=== PATIENT | female | born 1970 | race Caucasian/White ===

== ENCOUNTER 2016-08-28 02:57 | Emergency (ER) | payer OTHER ==
[~2016-08-28] VITALS: Ht 157.5 cm; Wt 80.0 kg
[~2016-08-28 02:57] MED LIST: ACETAMINOPHEN500 MG PO; ACID CONTROL75 MG PO; ALAVERT10 MG PO; ALBUTEROL SULF8.5 GM IH; ALBUTEROL0.63 MG/3 IH; ALLERGY EYE DRO10 ML BOTH EYES; AMBIEN5 MG PO; AMITRIPTYLINE H25 MG PO; AMOXICILLIN500 MG PO; AUGMENTIN875 MG PO; AXERT12.5 MG PO; AZITHROMYCIN500 M1 PO; Ambien PO; BENADRYL25 MG PO; BENTYL10 MG PO; BUSPIRONE HCL15 MG PO; BUTALB-APAP-CA1 EACH PO; CARAFATE1 GM PO; CEFDINIR300 MG PO; CEFUROXIME500 MG PO; CELEXA10 M1 PO; CLARITIN,ALAVAR10 MG PO; CLARITIN10 M3 PO; CLARITIN10 MG PO; CLONAZEPAM0.5 MG PO; CLONAZEPAM1 MG PO; CLONAZEPAM2 MG PO; COGENTIN0.5 MG PO; COMBIVENT; COMBIVENT RESPIM4 GM IH; COMBIVENT200 INHALA; COMBIVENT200 INHALA IH; CYCLOBENZAPRINE10 MG PO; CYMBALTA30 MG PO; CYMBALTA60 MG PO; Combivent IH; DAILY VALUE1 EACH PO; DESYREL 150 MG150 MG PO; DIAZEPAM2 MG PO; DICLOFENAC SODI75 MG PO; DICYCLOMINE HCL10 MG PO; DIFLUCAN150 MG PO; DILAUDID4 MG PO; DONNATAL1 ML PO; DOXYCYCLINE HY100 MG PO; DULCOLAX10 MG PR; DUONEB 2.5-0.5 M3 ML AEROSOL; DUONEB 2.5-0.5 M3 ML IH; FAMOTIDINE20 MG PO; FELODIPINE ER2.5 MG PO; FENTANYL; FENTANYL1 EAC5 TD; FIORICET 50-301 EACH PO; FIORICET WI1 CAPSULE PO; FLECTOR 1.3%1 PATC1 TD; FLEXERIL10 MG PO; FLONASE16 G1 BOTH NARES; FLOVENT 11120 INHALA IH; FLOVENT DISKUS1 DIS1 IH; FLOVENT DISKUS1 DIS2 IH; FLOVENT DISKUS1 DISK IH; FLUTICASONE PRO16 GM; FLUTICASONE PRO16 GM BOTH NARES; GABAPENTIN100 MG PO; GABAPENTIN300 MG PO; GEODON20 MG PO; GINSENG100 M2 PO; GUAIFENESIN400 MG PO; HYCODAN SYRUP480 ML PO; HYDROCORTISON28.4 GM TP; INDERAL40 MG PO; INHALER; KADIAN10 MG PO; KEFLEX500 MG PO; KLONOPIN0.25 MG PO; KLONOPIN0.5 M1 PO; KLONOPIN1 MG PO; KLONOPIN2 MG PO; KLOR-CON 1010 ME1 PO; LEVAQUIN 7750 MG/150 IV; LEVAQUIN750 MG PO; LEXAPRO20 MG PO; LIDOCAINE HCL35 GM TP; LIDODERM 5% P1 PATCH TD; LORATADINE 10 MG TAB; LORATADINE10 M2 PO; LORAZEPAM1 MG PO; LORAZEPAM2 MG PO; MARTEN-TAB 3251 EACH PO; METRONIDAZOLE500 MG PO; MICRO-K8 ME1 PO; MIRALAX17 GM PO; MIRTAZAPINE30 MG PO; MONTELUKAST SOD10 MG PO; MS CONTIN,ORAMO15 M1 PO; NASAL SPRAY30 M4 BOTH NARES; NEURONTIN300 MG PO; NICOTINE PATCH1 EAC2 TD; NOHOMEMEDS; NYSTATIN100000 UN1 PO; OMEPRAZOLE DR 20 MG; OMEPRAZOLE10 MG PO; OMEPRAZOLE20 MG PO; OMEPRAZOLE40 M1 PO; OXCARBAZEPINE300 MG PO; PANTOPRAZOLE SO40 MG PO; PAXIL40 MG PO; PEN-VEE K,VEET500 MG PO; PERCOCET 10/1 TABLET PO; PERCOCET 5/31 TABLET PO; PERCOCET 7.51 TABLET PO; PLAVIX75 MG PO; POTASSIUM CHLOR8 ME2 PO; PREDNISONE10 M1 PO; PREDNISONE10 MG PO; PREDNISONE20 MG PO; PREDNISONE50 MG PO; PRILOSEC PO; PRILOSEC20 MG PO; PRILOSEC40 MG PO; PROAIR HFA8.5 GM IH; PROMETHAZINE12.5 M1 PO; PROTONIX40 MG PO; PROVENTIL,2.5 MG/0.5 IH; PROVENTIL,2.5 MG/3 M IH; PROZAC20 MG PO; RANITIDINE HCL300 MG PO; RANITIDINE HCL75 MG PO; RELAFEN750 MG PO; REMERON15 M2 PO; REMERON30 M2 PO; RESTORIL15 MG PO; RESTORIL30 MG PO; RISPERDAL0.5 MG PO; ROBITUSSIN AC,T10 ML PO; ROXICODONE5 MG PO; SENNA8.6 M1 PO; SEROQUEL12.5 MG PO; SINGULAIR10 MG; SINGULAIR10 MG PO; SUCRALFATE1 GM PO; TEMAZEPAM30 MG PO; TOPAMAX100 MG PO; TOPAMAX200 MG PO; TOPAMAX25 MG PO; TOPIRAMATE100 MG PO; TOPIRAMATE200 MG PO; TOPIRAMATE25 MG PO; TORADOL10 MG PO; TRAMADOL HCL50 MG PO; TRAZODONE HCL150 MG PO; TRILIPIX135 MG PO; ULTRACET1 TABLET; ULTRACET1 TABLET PO; ULTRAM50 MG PO; VALIUM5 MG PO; VENTOLIN HFA18 GM IH; VENTOLIN17 GM IH; VERAPAMIL HCL120 M1 PO; VERAPAMIL HCL120 M2 PO; VERAPAMIL HCL120 MG PO; VERAPAMIL HCL240 MG PO; VICODIN HP 10-1 EACH PO; VOLTAREN 1% GE100 GM TP; ZIPRASIDONE HCL20 MG PO; ZIPRASIDONE HCL60 MG PO; ZITHROMAX Z-PA250 MG PO; ZITHROMAX250 MG PO; ZOFRAN ODT4 MG PO; ZOLOFT25 MG PO; ZOLPIDEM TARTRA10 MG PO; ZOLPIDEM TARTRAT5 MG PO; [UNRECOGNIZED DRUG - OTHER]; [UNRECOGNIZED DRUG - REMARK]; [UNRECOGNIZED DRUG - REMARK]; [UNRECOGNIZED DRUG - REMARK] PO; blood pressure med; carafate; clonazepam; cymbalta; duoneb; flovent; loratadine; metoprolol; singulair; topamax
[2016-08-28] MEDS ORDERED: PREDNISONE20 MG PO (03:50)
[2016-08-28] MEDS ORDERED: DOXYCYCLINE HY100 M3 PO (03:50)
[2016-08-28] MEDS ORDERED: VENTOLIN HFA18 GM IH (03:50)
[2016-08-28 05:30] VITALS: BP 118/74
== END 2016-08-28 05:33 | disposition home or self-care (01) ==
LOC: EME 02:57
DX: J44.0 Chronic obstructive pulmonary disease with (acute) lower respiratory infection (principal); J44.1 Chronic obstructive pulmonary disease with (acute) exacerbation; J20.9 Acute bronchitis, unspecified; F17.200 Nicotine dependence, unspecified, uncomplicated; I10 Essential (primary) hypertension; Z85.41 Personal history of malignant neoplasm of cervix uteri; Z95.5 Presence of coronary angioplasty implant and graft; Z88.6 Allergy status to analgesic agent; Z88.1 Allergy status to other antibiotic agents
CPT/HCPCS: 71010; 94640; 99281; 99285; J7512

== ENCOUNTER 2016-09-06 17:35 | Observation (INO) | payer OTHER ==
[~2016-09-06] VITALS: Ht 157.5 cm; Wt 79.5 kg
[~2016-09-06 17:35] MED LIST changes: +DOXYCYCLINE HY100 M3 PO
[2016-09-06 18:07] LABS: HEMATOCRIT 36.8 % (36.0-46.0); MCH 32.1 PG (29.0-34.0); MCHC 32.6 G/DL (30.0-36.0); MCV 98.4 FL (83-99); MEAN PLAT.VOLUME 8.7 uM^3 (9.5-12.4); PLATELET COUNT 191 K/uL (156-360); RBC DIS.WIDTH-CV 13.3 % (11.8-14.6); RBC DIS.WIDTH-SD 46.6 % (39-53); RED BLOOD COUNT 3.74 M/uL (3.80-5.20); WHITE BLOOD COUNT 6.4 K/uL (4.1-10.2)
[2016-09-06 18:16] LABS: CHLORIDE 112 mEq/L (99-109); POTASSIUM 3.6 mEq/L (3.7-5.4); SODIUM 142 mEq/L (136-147)
[2016-09-06 18:17] LABS: GLUCOSE 89 mg/dL (70-99)
[2016-09-06 18:19] LABS: ANION GAP 11 MEQ/L (2-14); D-DIMER ELISA 0.38 mg/L FEU (< 0.57)
[2016-09-06 18:21] LABS: GFR ESTIMATE (CALCULATED) > 59 mL/min/
[2016-09-06 18:22] LABS: UREA NITROGEN (BUN) 15 mg/dL (9-23)
[2016-09-06 18:27] LABS: TROP-I INTERPRETATION NEGATIVE; TROPONIN-I < 0.01 ng/mL (0.0-0.30)
[2016-09-06] MEDS ORDERED: CARAFATE1 GM PO (19:03)
[2016-09-06] MEDS ORDERED: NEXIUM40 MG PO (19:04)
[2016-09-06] MEDS ORDERED: FOLIC ACID1 MG PO (19:04)
[2016-09-06] MEDS ORDERED: ABILIFY10 MG PO (19:04)
[2016-09-06] MEDS ORDERED: LYRICA50 MG PO (19:04)
[2016-09-06] MEDS ORDERED: BUSPAR7.5 MG PO (19:04)
[2016-09-06] MEDS ORDERED: ELAVIL25 MG PO (19:05)
[2016-09-06 20:20] VITALS: BP 140/97
[2016-09-07 00:43] VITALS: BP 131/88
[2016-09-07 04:30] VITALS: BP 124/76
[2016-09-07 06:45] LABS: HDL CHOLESTEROL 29 MG/DL (Desirable>=50); LDL CHOLESTEROL 130 mg/dL (Desirable<100); NON-HDL CHOLESTEROL 188 mg/dL (Desirable<160); TOTAL CHOLESTEROL 217 mg/dL (Desirable<200); TRIGLYCERIDES 288 MG/DL (Normal: <150)
[2016-09-07 06:55] LABS: TROP-I INTERPRETATION NEGATIVE; TROPONIN-I 0.01 ng/mL (0.0-0.30)
[2016-09-07 07:34] VITALS: BP 126/81
[2016-09-07] MEDS ORDERED: PRAVASTATIN SOD40 MG PO (10:43)
== END 2016-09-07 12:15 | disposition home or self-care (01) ==
LOC: EME 17:35 → EDOF 19:06 → 5WEST 19:06
PROVIDERS: Emergency Medicine; Physician Assistant Medical
DX: R07.9 Chest pain, unspecified (principal); R94.31 Abnormal electrocardiogram [ECG] [EKG]; I10 Essential (primary) hypertension; I70.0 Atherosclerosis of aorta; Z82.49 Family history of ischemic heart disease and other diseases of the circulatory system; G89.4 Chronic pain syndrome; F17.200 Nicotine dependence, unspecified, uncomplicated; Z91.128 Patient's intentional underdosing of medication regimen for other reason; T45.8X6A Underdosing of other primarily systemic and hematological agents, initial encounter; Z79.891 Long term (current) use of opiate analgesic; R13.10 Dysphagia, unspecified; R06.02 Shortness of breath; J44.9 Chronic obstructive pulmonary disease, unspecified; M19.90 Unspecified osteoarthritis, unspecified site; E66.9 Obesity, unspecified; Z68.32 Body mass index [BMI] 32.0-32.9, adult; Z87.898 Personal history of other specified conditions; Z87.19 Personal history of other diseases of the digestive system; Z85.41 Personal history of malignant neoplasm of cervix uteri; Z88.8 Allergy status to other drugs, medicaments and biological substances; Z91.09 Other allergy status, other than to drugs and biological substances; Z80.1 Family history of malignant neoplasm of trachea, bronchus and lung
CPT/HCPCS: 71010; 80048; 80061; 84484; 85027; 85379; 93005; 94640; 99202; 99281; 99285; G0378; J1650

== ENCOUNTER 2016-09-10 20:37 | Emergency (ER) | payer OTHER ==
[~2016-09-10] VITALS: Ht 157.5 cm; Wt 74.2 kg
[~2016-09-10 20:37] MED LIST changes: +ABILIFY10 MG PO; +BUSPAR7.5 MG PO; +ELAVIL25 MG PO; +FOLIC ACID1 MG PO; +LYRICA50 MG PO; +NEXIUM40 MG PO; +PRAVASTATIN SOD40 MG PO
[2016-09-10 20:48] LABS: HEMATOCRIT 38.1 % (36.0-46.0); MCH 32.7 PG (29.0-34.0); MCHC 33.6 G/DL (30.0-36.0); MCV 97.2 FL (83-99); MEAN PLAT.VOLUME 8.8 uM^3 (9.5-12.4); PLATELET COUNT 174 K/uL (156-360); RBC DIS.WIDTH-CV 13.1 % (11.8-14.6); RBC DIS.WIDTH-SD 45.3 % (39-53); RED BLOOD COUNT 3.92 M/uL (3.80-5.20); WHITE BLOOD COUNT 6.2 K/uL (4.1-10.2)
[2016-09-10 20:58] LABS: CHLORIDE 115 mEq/L (99-109); POTASSIUM 3.1 mEq/L (3.7-5.4); SODIUM 144 mEq/L (136-147)
[2016-09-10 21:00] LABS: GLUCOSE 101 mg/dL (70-99)
[2016-09-10 21:01] LABS: ANION GAP 11 MEQ/L (2-14)
[2016-09-10 21:02] LABS: TOTAL BILIRUBIN 0.2 mg/dL (0.0-1.0)
[2016-09-10 21:03] LABS: ALKALINE PHOSPHATASE 65 IU/L (3-129)
[2016-09-10 21:04] LABS: GFR ESTIMATE (CALCULATED) > 59 mL/min/
[2016-09-10 21:05] LABS: UREA NITROGEN (BUN) 11 mg/dL (9-23)
[2016-09-10 21:07] LABS: LIPASE 25 U/L (1.0-51.0)
[2016-09-10 21:09] LABS: TROP-I INTERPRETATION NEGATIVE; TROPONIN-I < 0.01 ng/mL (0.0-0.30)
[2016-09-11] MEDS ORDERED: NORCO 5/3251 TABLET PO (00:52)
[2016-09-11 01:25] VITALS: BP 155/90
== END 2016-09-11 01:26 | disposition home or self-care (01) ==
LOC: EME 20:37
DX: R11.2 Nausea with vomiting, unspecified (principal); R10.84 Generalized abdominal pain; M25.512 Pain in left shoulder; M62.838 Other muscle spasm; I10 Essential (primary) hypertension; R42 Dizziness and giddiness; R05 Cough; E87.6 Hypokalemia; G89.29 Other chronic pain; Z79.891 Long term (current) use of opiate analgesic; J44.9 Chronic obstructive pulmonary disease, unspecified; J45.909 Unspecified asthma, uncomplicated; F17.200 Nicotine dependence, unspecified, uncomplicated
CPT/HCPCS: 71020; 80053; 81003; 83690; 84484; 85027; 93005; 99281; 99285; J0780; J1200; J2405; J7030

== ENCOUNTER 2016-09-20 09:37 | Emergency (ER) | payer OTHER ==
[~2016-09-20] VITALS: Ht 157.5 cm; Wt 80.0 kg
[~2016-09-20 09:37] MED LIST changes: +NORCO 5/3251 TABLET PO
[2016-09-20 10:00] VITALS: BP 126/101
[2016-09-20 10:16] LABS: EOSINOPHIL (%) 0.9 % (0-5); EOSINOPHIL COUNT 0.1 K/uL (0-0.3); HEMATOCRIT 38.6 % (36.0-46.0); IMMATURE GRANULOCYTE (%) 0.3 % (0.0-0.7); IMMATURE GRANULOCYTE COUNT 0.2 K/uL; MCH 33.2 PG (29.0-34.0); MCHC 33.9 G/DL (30.0-36.0); MEAN PLAT.VOLUME 9.6 uM^3 (9.5-12.4); MONOCYTE (%) 5.9 % (3-12); MONOCYTE COUNT 0.5 K/uL (0-0.8); NEUTROPHIL (%) 67.2 % (45-76); NEUTROPHIL COUNT 5.4 K/uL (1.8-6.4); PLATELET COUNT 162 K/uL (156-360); RBC DIS.WIDTH-SD 45.5 % (39-53); RED BLOOD COUNT 3.94 M/uL (3.80-5.20)
[2016-09-20 10:32] LABS: CHLORIDE 113 mEq/L (99-109); POTASSIUM 4.1 mEq/L (3.7-5.4); SODIUM 140 mEq/L (136-147)
[2016-09-20 10:34] LABS: GLUCOSE 95 mg/dL (70-99)
[2016-09-20 10:35] LABS: ANION GAP 10 MEQ/L (2-14)
[2016-09-20 10:37] LABS: GFR ESTIMATE (CALCULATED) > 59 mL/min/
[2016-09-20 10:41] LABS: TROP-I INTERPRETATION NEGATIVE; TROPONIN-I < 0.01 ng/mL (0.0-0.30); UREA NITROGEN (BUN) 16 mg/dL (9-23)
== END 2016-09-20 11:45 | disposition left against medical advice (07) ==
LOC: EME 09:37
PROVIDERS: Emergency Medicine
DX: R07.9 Chest pain, unspecified (principal); M54.9 Dorsalgia, unspecified; M79.602 Pain in left arm; G89.29 Other chronic pain; Z79.891 Long term (current) use of opiate analgesic; J44.9 Chronic obstructive pulmonary disease, unspecified; I10 Essential (primary) hypertension; F17.200 Nicotine dependence, unspecified, uncomplicated
CPT/HCPCS: 71010; 80048; 84484; 85025; 93005; 99281; 99284

== ENCOUNTER 2016-09-20 19:33 | Emergency (ER) | payer OTHER ==
[~2016-09-20] VITALS: Ht 157.5 cm; Wt 83.1 kg
[2016-09-20 19:49] LABS: HEMATOCRIT 35.5 % (36.0-46.0); MCHC 33.5 G/DL (30.0-36.0); MCV 98.3 FL (83-99); MEAN PLAT.VOLUME 8.9 uM^3 (9.5-12.4); PLATELET COUNT 156 K/uL (156-360); RBC DIS.WIDTH-SD 44.9 % (39-53); RED BLOOD COUNT 3.61 M/uL (3.80-5.20)
[2016-09-20 19:58] LABS: CHLORIDE 114 mEq/L (99-109); POTASSIUM 3.2 mEq/L (3.7-5.4); SODIUM 142 mEq/L (136-147)
[2016-09-20 19:59] LABS: GLUCOSE 95 mg/dL (70-99)
[2016-09-20 20:01] LABS: ANION GAP 7 MEQ/L (2-14)
[2016-09-20 20:03] LABS: GFR ESTIMATE (CALCULATED) > 59 mL/min/
[2016-09-20 20:04] LABS: UREA NITROGEN (BUN) 18 mg/dL (9-23)
[2016-09-20 20:15] LABS: TROP-I INTERPRETATION NEGATIVE; TROPONIN-I < 0.01 ng/mL (0.0-0.30)
[2016-09-20 20:52] LABS: D-DIMER ELISA 0.32 mg/L FEU (< 0.57)
[2016-09-20 21:28] VITALS: BP 158/104
== END 2016-09-20 21:35 | disposition home or self-care (01) ==
LOC: EME → EDBD 19:33 → EME 19:33
DX: R07.2 Precordial pain (principal); F17.200 Nicotine dependence, unspecified, uncomplicated; G89.29 Other chronic pain; J44.9 Chronic obstructive pulmonary disease, unspecified; I10 Essential (primary) hypertension; K21.9 Gastro-esophageal reflux disease without esophagitis; F32.9 Major depressive disorder, single episode, unspecified
CPT/HCPCS: 71020; 80048 91; 84484; 85027; 85379; 93005; 99281; 99284; J1885; J7050

== ENCOUNTER 2016-10-05 22:46 | Inpatient (IN) | payer OTHER ==
[~2016-10-05] VITALS: Ht 157.5 cm; Wt 82.1 kg
[2016-10-05 23:31] LABS: HEMATOCRIT 37.2 % (36.0-46.0); MCH 32.3 PG (29.0-34.0); MCHC 32.3 G/DL (30.0-36.0); MEAN PLAT.VOLUME 8.8 uM^3 (9.5-12.4); PLATELET COUNT 193 K/uL (156-360); RBC DIS.WIDTH-CV 12.2 % (11.8-14.6); RBC DIS.WIDTH-SD 45.4 % (39-53); RED BLOOD COUNT 3.72 M/uL (3.80-5.20); WHITE BLOOD COUNT 6.1 K/uL (4.1-10.2)
[2016-10-05 23:41] LABS: CHLORIDE 110 mEq/L (99-109); SODIUM 141 mEq/L (136-147)
[2016-10-05 23:43] LABS: GLUCOSE 106 mg/dL (70-99)
[2016-10-05 23:44] LABS: ANION GAP 11 MEQ/L (2-14)
[2016-10-05 23:45] LABS: TOTAL BILIRUBIN 0.2 mg/dL (0.0-1.0)
[2016-10-05 23:47] LABS: ALKALINE PHOSPHATASE 63 IU/L (3-129); GFR ESTIMATE (CALCULATED) > 59 mL/min/
[2016-10-05 23:48] LABS: UREA NITROGEN (BUN) 13 mg/dL (9-23)
[2016-10-05 23:52] LABS: TROP-I INTERPRETATION NEGATIVE; TROPONIN-I < 0.01 ng/mL (0.0-0.30)
[2016-10-05 23:56] LABS: QUANTITATIVE HCG 7.3 MIU/ML
[2016-10-06 00:48] LABS: D-DIMER ELISA 0.46 mg/L FEU (< 0.57)
[2016-10-06 00:57] LABS: INFLUENZA A VIRAL ANTIGEN NEGATIVE; INFLUENZA B VIRAL ANTIGEN NEGATIVE
[2016-10-06 01:10] LABS: ADD MIUA? NO; BILIRUBIN NEGATIVE; BLOOD NEGATIVE; COLOR YELLOW ((YELLOW)); GLUCOSE (STRIP) NEGATIVE; KETONES NEGATIVE; LEUKOCYTES NEGATIVE; NITRITE NEGATIVE; PROTEIN (STRIP) NEGATIVE; SPECIFIC GRAVITY 1.014 (1.000-1.030); UCUL ADDED? NO; UROBILINOGEN 0.2 MG/DL (0.2-1.0)
[2016-10-06] MEDS ORDERED: LISINOPRIL40 MG PO (09:06)
[2016-10-06] MEDS ORDERED: LORAZEPAM1 MG PO (09:06)
[2016-10-06] MEDS ORDERED: LAMICTAL100 MG PO (09:06)
[2016-10-06 18:35] VITALS: BP 156/101
[2016-10-06 22:48] VITALS: BP 152/85
[2016-10-07 03:07] VITALS: BP 163/83
[2016-10-07 07:02] LABS: EOSINOPHIL (%) 0 % (0-5); HEMATOCRIT 35.4 % (36.0-46.0); IMMATURE GRANULOCYTE (%) 1.3 % (0.0-0.7); IMMATURE GRANULOCYTE COUNT 0.2 K/uL; INSTRUMENT ABS NEUTROPHIL CT 10.9 K/uL; LYMPHOCYTE COUNT 1.3 K/uL (1.0-2.8); MCH 32.6 PG (29.0-34.0); MCHC 32.2 G/DL (30.0-36.0); MCV 101.1 FL (83-99); MEAN PLAT.VOLUME 9.3 uM^3 (9.5-12.4); MONOCYTE (%) 3.1 % (3-12); MONOCYTE COUNT 0.4 K/uL (0-0.8); NEUTROPHIL (%) 85.1 % (45-76); NEUTROPHIL COUNT 10.9 K/uL (1.8-6.4); PLATELET COUNT 188 K/uL (156-360); RBC DIS.WIDTH-CV 12.5 % (11.8-14.6); RBC DIS.WIDTH-SD 46.4 % (39-53)
[2016-10-07 07:04] VITALS: BP 138/85
[2016-10-07 07:13] LABS: WHITE BLOOD COUNT 12.8 K/uL (4.1-10.2)
[2016-10-07 07:25] LABS: ANION GAP 9 MEQ/L (2-14); CHLORIDE 111 MEQ/L (99-109); GFR ESTIMATE (CALCULATED) > 59 mL/min/; GLUCOSE 114 mg/dL (70-99); SAMPLE HEMOLYSIS CHECK 0; SAMPLE ICTERIC CHECK 0; SAMPLE LIPEMIA CHECK 0; SODIUM 137 MEQ/L (136-147)
[2016-10-07 07:27] LABS: POTASSIUM 4.4 MEQ/L (3.7-5.4); UREA NITROGEN (BUN) 24 mg/dL (9-23)
[2016-10-07 15:51] VITALS: BP 142/91
[2016-10-07 23:02] VITALS: BP 138/85
[2016-10-08 07:44] VITALS: BP 151/95
[2016-10-08] MEDS ORDERED: PREDNISONE10 MG PO (16:17)
[2016-10-08] MEDS ORDERED: DUONEB 2.5-0.5 M3 ML AEROSOL (16:17)
[2016-10-08] MEDS ORDERED: AMOX TR-K CLV1 EAC4 PO (16:17)
[2016-10-08 17:13] VITALS: BP 160/107
[2016-10-08] MEDS ORDERED: NICODERM CQ1 EAC2 TD (20:06)
[2016-10-08] MEDS ORDERED: BENADRYL25 MG PO (20:08)
== END 2016-10-08 19:07 | DRG 191 ==
LOC: EME 22:46 → 5EAST 10-06 04:57 → EDOF 10-06 04:57 → 5EAST 10-06 18:02
PROVIDERS: Emergency Medicine; Hospitalist
DX: J44.1 Chronic obstructive pulmonary disease with (acute) exacerbation (principal); R45.851 Suicidal ideations; F11.20 Opioid dependence, uncomplicated; J44.0 Chronic obstructive pulmonary disease with (acute) lower respiratory infection; J20.9 Acute bronchitis, unspecified; E87.6 Hypokalemia; R06.89 Other abnormalities of breathing; J45.909 Unspecified asthma, uncomplicated; F31.9 Bipolar disorder, unspecified; I10 Essential (primary) hypertension; E78.5 Hyperlipidemia, unspecified; M79.7 Fibromyalgia; G43.909 Migraine, unspecified, not intractable, without status migrainosus; E66.9 Obesity, unspecified; F17.210 Nicotine dependence, cigarettes, uncomplicated; Z85.41 Personal history of malignant neoplasm of cervix uteri; Z68.33 Body mass index [BMI] 33.0-33.9, adult
CPT/HCPCS: 71010; 80048; 80053; 81003; 83605; 83690; 84484; 84702; 85025; 85027; 85379; 87502; 93005; 94640; 94640 76; 94644; 94799; 99202; 99281; 99285; J1100; J1650; J1885; J2270; J2405; J2930; J7030; J7644

== ENCOUNTER 2016-10-08 18:46 | Inpatient (IN) | payer OTHER ==
[~2016-10-08] VITALS: Ht 157.5 cm; Wt 84.2 kg
[~2016-10-08 18:46] MED LIST changes: +AMOX TR-K CLV1 EAC4 PO; +LAMICTAL100 MG PO; +LISINOPRIL40 MG PO
[2016-10-08 19:23] VITALS: BP 172/94
[2016-10-08] MEDS ORDERED: NICODERM CQ1 EAC2 TD (20:06)
[2016-10-08] MEDS ORDERED: BENADRYL25 MG PO (20:08)
[2016-10-09 08:04] VITALS: BP 157/104
[2016-10-09 15:25] VITALS: BP 143/96
[2016-10-10 08:13] VITALS: BP 121/73
[2016-10-10 15:37] VITALS: BP 122/78
[2016-10-11 07:43] VITALS: BP 152/92
[2016-10-11 16:09] VITALS: BP 141/92
[2016-10-12 07:56] VITALS: BP 154/87
[2016-10-12] MEDS ORDERED: BUSPAR10 MG PO (09:18)
[2016-10-12] MEDS ORDERED: AMLODIPINE BESYL5 MG PO (09:18)
[2016-10-12] MEDS ORDERED: TRAZODONE HCL100 MG PO (09:18)
[2016-10-12] MEDS ORDERED: TRAMADOL HCL50 MG PO (09:18)
== END 2016-10-12 12:12 | disposition home or self-care (01) | DRG 885 ==
LOC: 1WEST 18:46 → 5EAST 18:49 → 1WEST 19:04
DX: F33.0 Major depressive disorder, recurrent, mild (principal); J44.0 Chronic obstructive pulmonary disease with (acute) lower respiratory infection; R45.851 Suicidal ideations; J44.1 Chronic obstructive pulmonary disease with (acute) exacerbation; G47.00 Insomnia, unspecified; F41.9 Anxiety disorder, unspecified; J20.9 Acute bronchitis, unspecified; G89.29 Other chronic pain; M19.90 Unspecified osteoarthritis, unspecified site; F12.10 Cannabis abuse, uncomplicated; F17.210 Nicotine dependence, cigarettes, uncomplicated; F19.10 Other psychoactive substance abuse, uncomplicated; F10.10 Alcohol abuse, uncomplicated
CPT/HCPCS: 94640 76; 94799; 97150 GO; J7512

== ENCOUNTER 2016-11-10 11:00 | Emergency (ER) | payer OTHER ==
[~2016-11-10] VITALS: Ht 157.5 cm; Wt 81.1 kg
[~2016-11-10 11:00] MED LIST changes: +AMLODIPINE BESYL5 MG PO; +BUSPAR10 MG PO; +NICODERM CQ1 EAC2 TD; +TRAZODONE HCL100 MG PO
[2016-11-10 12:21] LABS: CHLORIDE 113 mEq/L (99-109); POTASSIUM 3.6 mEq/L (3.7-5.4); SODIUM 141 mEq/L (136-147)
[2016-11-10 12:24] LABS: GLUCOSE 96 mg/dL (70-99)
[2016-11-10 12:25] LABS: ANION GAP 11 MEQ/L (2-14); TOTAL BILIRUBIN 0.3 mg/dL (0.0-1.0)
[2016-11-10 12:26] LABS: SERUM ETHYL ALCOHOL < 10 mg/dL
[2016-11-10 12:27] LABS: GFR ESTIMATE (CALCULATED) > 59 mL/min/
[2016-11-10 12:28] LABS: ALKALINE PHOSPHATASE 56 IU/L (3-129)
[2016-11-10 12:29] LABS: DIRECT BILIRUBIN 0.1 mg/dL (0.0-0.3); UREA NITROGEN (BUN) 22 mg/dL (9-23)
[2016-11-10 12:31] LABS: SALICYLATE < 5.0 MG/DL (15-30)
[2016-11-10 12:41] LABS: EOSINOPHIL (%) 0.6 % (0-5); HEMATOCRIT 42.1 % (36.0-46.0); IMMATURE GRANULOCYTE (%) 0.3 % (0.0-0.7); INSTRUMENT ABS NEUTROPHIL CT 4.4 K/uL; LYMPHOCYTE COUNT 2.2 K/uL (1.0-2.8); MCH 31.7 PG (29.0-34.0); MCHC 32.8 G/DL (30.0-36.0); MCV 96.6 FL (83-99); MEAN PLAT.VOLUME 9.6 uM^3 (9.5-12.4); MONOCYTE (%) 2.8 % (3-12); MONOCYTE COUNT 0.2 K/uL (0-0.8); NEUTROPHIL (%) 64.4 % (45-76); NEUTROPHIL COUNT 4.4 K/uL (1.8-6.4); PLATELET COUNT 155 K/uL (156-360); RBC DIS.WIDTH-CV 12.2 % (11.8-14.6); RBC DIS.WIDTH-SD 43.5 % (39-53); RED BLOOD COUNT 4.36 M/uL (3.80-5.20); WHITE BLOOD COUNT 6.8 K/uL (4.1-10.2)
[2016-11-10 13:47] LABS: ADD MIUA? NO; BILIRUBIN NEGATIVE; BLOOD NEGATIVE; COLOR YELLOW ((YELLOW)); GLUCOSE (STRIP) NEGATIVE; KETONES NEGATIVE; LEUKOCYTES NEGATIVE; NITRITE NEGATIVE; PROTEIN (STRIP) NEGATIVE; SPECIFIC GRAVITY 1.019 (1.000-1.030); UROBILINOGEN 0.2 MG/DL (0.2-1.0)
[2016-11-10 13:57] LABS: AMPHETAMINE NEGATIVE (500 ng/mL); BARBITURATES NEGATIVE (200 ng/mL); BENZODIAZEPINES PRESUMPTIVE POSITIVE (150 ng/mL); COCAINE NEGATIVE (150 ng/mL); INTERNAL CONTROLS VALID? YES; METHADONE NEGATIVE (200 ng/mL); METHAMPHETAMINE NEGATIVE (500 ng/mL); OPIATES (MORPHINE) PRESUMPTIVE POSITIVE (100 ng/mL); OXYCODONE NEGATIVE (100 ng/mL); PHENCYCLIDINE NEGATIVE (25 ng/mL); PROPOXYPHENE NEGATIVE (300 ng/mL); THC CANNABINOIDS PRESUMPTIVE POSITIVE (50 ng/mL); TRICYCLIC ANTIDEPRESSANTS NEGATIVE (300 ng/mL)
[2016-11-10 13:58] LABS: ADD MEDTOX COMMENT Y
[2016-11-10 14:36] LABS: BENZODIAZEPINES QUANT VALUE 0 NG/ML; OPIATES QUANTITATIVE VALUE 0 NG/ML
[2016-11-10 14:37] LABS: BENZODIAZEPINES, URINE SCREEN Negative (200 ng/mL)
[2016-11-10 15:05] VITALS: BP 133/81
== END 2016-11-10 15:06 | disposition home or self-care (01) ==
LOC: EME → EDBD 11:00 → EME 15:06
PROVIDERS: Emergency Medicine
DX: F41.9 Anxiety disorder, unspecified (principal); F32.9 Major depressive disorder, single episode, unspecified; T42.4X1A Poisoning by benzodiazepines, accidental (unintentional), initial encounter; T42.6X1A Poisoning by other antiepileptic and sedative-hypnotic drugs, accidental (unintentional), initial encounter; T43.591A Poisoning by other antipsychotics and neuroleptics, accidental (unintentional), initial encounter; I10 Essential (primary) hypertension; J44.9 Chronic obstructive pulmonary disease, unspecified; J45.909 Unspecified asthma, uncomplicated; G89.29 Other chronic pain; K21.9 Gastro-esophageal reflux disease without esophagitis; R56.9 Unspecified convulsions; K58.0 Irritable bowel syndrome with diarrhea; M46.90 Unspecified inflammatory spondylopathy, site unspecified; F17.200 Nicotine dependence, unspecified, uncomplicated; Z85.41 Personal history of malignant neoplasm of cervix uteri; Z90.710 Acquired absence of both cervix and uterus; Z95.5 Presence of coronary angioplasty implant and graft
CPT/HCPCS: 80048; 80076; 81003; 84999; 85025; 90837; 93005; 99281; 99285; G0480

== ENCOUNTER 2016-11-20 03:55 | Emergency (ER) | payer OTHER ==
[~2016-11-20] VITALS: Ht 157.5 cm; Wt 80.5 kg
[2016-11-20 04:43] LABS: EOSINOPHIL (%) 2.5 % (0-5); EOSINOPHIL COUNT 0.2 K/uL (0-0.3); HEMATOCRIT 38.5 % (36.0-46.0); IMMATURE GRANULOCYTE (%) 0.3 % (0.0-0.7); INSTRUMENT ABS NEUTROPHIL CT 3.1 K/uL; LYMPHOCYTE COUNT 2.4 K/uL (1.0-2.8); MCH 31.4 PG (29.0-34.0); MCV 95.3 FL (83-99); MEAN PLAT.VOLUME 9.2 uM^3 (9.5-12.4); MONOCYTE (%) 5.2 % (3-12); MONOCYTE COUNT 0.3 K/uL (0-0.8); NEUTROPHIL (%) 51.3 % (45-76); NEUTROPHIL COUNT 3.1 K/uL (1.8-6.4); PLATELET COUNT 136 K/uL (156-360); RBC DIS.WIDTH-CV 12.2 % (11.8-14.6); RED BLOOD COUNT 4.04 M/uL (3.80-5.20)
[2016-11-20 04:56] LABS: CHLORIDE 112 mEq/L (99-109); POTASSIUM 3.5 mEq/L (3.7-5.4); SODIUM 140 mEq/L (136-147)
[2016-11-20 04:59] LABS: GLUCOSE 96 mg/dL (70-99)
[2016-11-20 05:00] LABS: ANION GAP 8 MEQ/L (2-14)
[2016-11-20 05:01] LABS: TOTAL BILIRUBIN 0.2 mg/dL (0.0-1.0)
[2016-11-20 05:02] LABS: ALKALINE PHOSPHATASE 50 IU/L (3-129); GFR ESTIMATE (CALCULATED) > 59 mL/min/
[2016-11-20 05:03] LABS: UREA NITROGEN (BUN) 18 mg/dL (9-23)
[2016-11-20 05:06] LABS: LIPASE 34 U/L (1.0-51.0)
[2016-11-20 05:16] LABS: QUANTITATIVE HCG 8.8 MIU/ML
[2016-11-20 05:52] LABS: ADD MIUA? YES; BILIRUBIN NEGATIVE; BLOOD NEGATIVE; COLOR YELLOW ((YELLOW)); GLUCOSE (STRIP) NEGATIVE; KETONES NEGATIVE; LEUKOCYTES NEGATIVE; NITRITE NEGATIVE; PROTEIN (STRIP) NEGATIVE; SPECIFIC GRAVITY 1.011 (1.000-1.030); UROBILINOGEN 0.2 MG/DL (0.2-1.0)
[2016-11-20 06:00] LABS: BACTERIA 1+ /HPF; EPITHELIAL CELLS RARE /HPF; MUCUS TRACE /LPF; RED BLOOD CELLS 0-5 /HPF (0-5); UCUL ADDED? NO; WHITE BLOOD CELLS 0-5 /HPF (0-5)
[2016-11-20 06:28] VITALS: BP 93/65
== END 2016-11-20 06:32 | disposition home or self-care (01) ==
LOC: EME 03:55
PROVIDERS: Emergency Medicine
DX: R10.13 Epigastric pain (principal); K42.9 Umbilical hernia without obstruction or gangrene; I10 Essential (primary) hypertension; K21.9 Gastro-esophageal reflux disease without esophagitis; F17.200 Nicotine dependence, unspecified, uncomplicated; Z85.41 Personal history of malignant neoplasm of cervix uteri; Z88.6 Allergy status to analgesic agent; Z88.1 Allergy status to other antibiotic agents
CPT/HCPCS: 74177; 80053; 81003; 83690; 84702; 85025; 99281; 99284; J2405; J3010; J7030

== ENCOUNTER 2016-12-08 09:09 | Emergency (ER) | payer OTHER ==
[~2016-12-08] VITALS: Ht 157.5 cm; Wt 76.0 kg
[2016-12-08 09:55] LABS: CHLORIDE 108 mEq/L (99-109); POTASSIUM 3.2 mEq/L (3.7-5.4); SODIUM 144 mEq/L (136-147)
[2016-12-08 09:57] LABS: GLUCOSE 111 mg/dL (70-99)
[2016-12-08 09:58] LABS: ANION GAP 15 MEQ/L (2-14); EOSINOPHIL (%) 0.7 % (0-5); HEMATOCRIT 46.8 % (36.0-46.0); IMMATURE GRANULOCYTE (%) 0.3 % (0.0-0.7); INSTRUMENT ABS NEUTROPHIL CT 4.4 K/uL; LYMPHOCYTE COUNT 1.3 K/uL (1.0-2.8); MCH 31.3 PG (29.0-34.0); MCHC 33.8 G/DL (30.0-36.0); MCV 92.9 FL (83-99); MEAN PLAT.VOLUME 9.2 uM^3 (9.5-12.4); MONOCYTE (%) 5.1 % (3-12); MONOCYTE COUNT 0.3 K/uL (0-0.8); NEUTROPHIL (%) 71.6 % (45-76); NEUTROPHIL COUNT 4.4 K/uL (1.8-6.4); PLATELET COUNT 155 K/uL (156-360); RBC DIS.WIDTH-CV 12.7 % (11.8-14.6); RBC DIS.WIDTH-SD 43.4 % (39-53); RED BLOOD COUNT 5.04 M/uL (3.80-5.20); WHITE BLOOD COUNT 6.1 K/uL (4.1-10.2)
[2016-12-08 09:59] LABS: TOTAL BILIRUBIN 0.7 mg/dL (0.0-1.0)
[2016-12-08 10:01] LABS: ALKALINE PHOSPHATASE 55 IU/L (3-129); GFR ESTIMATE (CALCULATED) > 59 mL/min/
[2016-12-08 10:02] LABS: UREA NITROGEN (BUN) 14 mg/dL (9-23)
[2016-12-08 11:09] LABS: LIPASE 14 U/L (1.0-51.0)
[2016-12-08 11:13] LABS: ADD MIUA? YES; BILIRUBIN NEGATIVE; BLOOD NEGATIVE; COLOR YELLOW ((YELLOW)); GLUCOSE (STRIP) NEGATIVE; KETONES 20; LEUKOCYTES NEGATIVE; NITRITE NEGATIVE; PROTEIN (STRIP) 30; SPECIFIC GRAVITY 1.028 (1.000-1.030); UROBILINOGEN 0.2 MG/DL (0.2-1.0)
[2016-12-08 11:26] LABS: BACTERIA 1+ /HPF; EPITHELIAL CELLS 1+ /HPF; MUCUS 4+ /LPF; RED BLOOD CELLS 0-5 /HPF (0-5); UCUL ADDED? NO; WHITE BLOOD CELLS 0-5 /HPF (0-5)
[2016-12-08 12:25] VITALS: BP 159/103
== END 2016-12-08 12:28 | disposition home or self-care (01) ==
LOC: EME 09:09
PROVIDERS: Emergency Medicine
DX: R19.7 Diarrhea, unspecified (principal); R10.817 Generalized abdominal tenderness; G89.29 Other chronic pain; R11.2 Nausea with vomiting, unspecified; E87.6 Hypokalemia; I10 Essential (primary) hypertension; Z90.710 Acquired absence of both cervix and uterus; Z90.49 Acquired absence of other specified parts of digestive tract; Z85.41 Personal history of malignant neoplasm of cervix uteri; F17.200 Nicotine dependence, unspecified, uncomplicated
CPT/HCPCS: 74177; 80053; 81003; 83605; 83690; 85025; 87493; 87506; 99281; 99285; J2405; J2765; J3010; J7030

== ENCOUNTER 2016-12-17 21:45 | Observation (INO) | payer OTHER ==
[~2016-12-17] VITALS: Ht 157.5 cm; Wt 83.9 kg
[2016-12-17 23:29] LABS: HEMATOCRIT 37.4 % (36.0-46.0); MCH 32.6 PG (29.0-34.0); MCHC 33.7 G/DL (30.0-36.0); MEAN PLAT.VOLUME 9.9 uM^3 (9.5-12.4); PLATELET COUNT 147 K/uL (156-360); RBC DIS.WIDTH-CV 12.3 % (11.8-14.6); RBC DIS.WIDTH-SD 43.7 % (39-53); WHITE BLOOD COUNT 6.7 K/uL (4.1-10.2)
[2016-12-17 23:32] LABS: CHLORIDE 112 mEq/L (99-109); POTASSIUM 3.6 mEq/L (3.7-5.4); SODIUM 143 mEq/L (136-147)
[2016-12-17 23:33] LABS: MCV 96.9 FL (83-99); RED BLOOD COUNT 3.86 M/uL (3.80-5.20)
[2016-12-17 23:34] LABS: GLUCOSE 120 mg/dL (70-99)
[2016-12-17 23:36] LABS: ANION GAP 12 MEQ/L (2-14)
[2016-12-17 23:38] LABS: GFR ESTIMATE (CALCULATED) > 59 mL/min/
[2016-12-17 23:39] LABS: UREA NITROGEN (BUN) 13 mg/dL (9-23)
[2016-12-17 23:42] LABS: TROP-I INTERPRETATION NEGATIVE; TROPONIN-I < 0.01 ng/mL (0.0-0.30)
[2016-12-18 00:32] LABS: D-DIMER ELISA 0.53 mg/L FEU (< 0.57)
[2016-12-18] MEDS ORDERED: LISINOPRIL10 MG PO (00:37)
[2016-12-18] MEDS ORDERED: LYRICA75 MG PO (00:38)
[2016-12-18] MEDS ORDERED: TRAMADOL HCL50 MG PO (00:38)
[2016-12-18] MEDS ORDERED: CLONAZEPAM1 MG PO (00:39)
[2016-12-18] MEDS ORDERED: ABILIFY20 MG PO (00:39)
[2016-12-18] MEDS ORDERED: LAMICTAL100 MG PO (00:41)
[2016-12-18] MEDS ORDERED: PERCOCET 10/1 TABLET PO (00:41)
[2016-12-18] MEDS ORDERED: POTASSIUM CHLO20 ME1 PO (00:41)
[2016-12-18] MEDS ORDERED: FLUOXETINE HCL40 MG PO (00:41)
[2016-12-18] MEDS ORDERED: TOPAMAX200 MG PO (00:41)
[2016-12-18] MEDS ORDERED: BUSPAR15 MG PO (00:42)
[2016-12-18 00:53] LABS: PROTHROMBIN TIME 10.3 (9.2-11.2); PTT 25.9 (25-32)
[2016-12-18 02:00] VITALS: BP 139/90
[2016-12-18 05:43] VITALS: BP 123/77
[2016-12-18 07:52] VITALS: BP 151/91
[2016-12-18] MEDS ORDERED: PREDNISONE10 MG PO (08:36)
[2016-12-18] MEDS ORDERED: PULMICORT FLEX90 MCG IH (08:36)
[2016-12-18] MEDS ORDERED: SPIRIVA1 INHALATI IH (08:36)
[2016-12-18] MEDS ORDERED: NICOTINE PATCH1 EAC2 TD (08:36)
[2016-12-18 11:15] VITALS: BP 153/85
[2016-12-18 13:15] LABS: TROP-I INTERPRETATION NEGATIVE; TROPONIN-I < 0.01 ng/mL (0.0-0.30)
== END 2016-12-18 14:21 | disposition home or self-care (01) ==
LOC: EME 21:45 → 5WEST 12-18 00:36 → EDOF 12-18 00:36 → 5WEST 12-18 01:42
PROVIDERS: Emergency Medicine; Physician Assistant Medical
DX: R07.89 Other chest pain (principal); I10 Essential (primary) hypertension; J44.9 Chronic obstructive pulmonary disease, unspecified; J45.909 Unspecified asthma, uncomplicated; G89.29 Other chronic pain; G43.909 Migraine, unspecified, not intractable, without status migrainosus; E78.5 Hyperlipidemia, unspecified; K21.9 Gastro-esophageal reflux disease without esophagitis; F31.9 Bipolar disorder, unspecified; F12.10 Cannabis abuse, uncomplicated; F17.210 Nicotine dependence, cigarettes, uncomplicated; M79.7 Fibromyalgia
CPT/HCPCS: 71020; 80048; 84484; 85027; 85379; 85610; 85730; 93005; 94640; 94640 76; 99202; 99281; 99283; G0378; J1650; J2270; J7512

== ENCOUNTER 2016-12-22 18:44 | Emergency (ER) | payer OTHER ==
[~2016-12-22] VITALS: Ht 157.5 cm; Wt 83.5 kg
[~2016-12-22 18:44] MED LIST changes: +ABILIFY20 MG PO; +BUSPAR15 MG PO; +FLUOXETINE HCL40 MG PO; +LISINOPRIL10 MG PO; +LYRICA75 MG PO; +POTASSIUM CHLO20 ME1 PO; +PULMICORT FLEX90 MCG IH; +SPIRIVA1 INHALATI IH
[2016-12-22 19:56] LABS: HEMATOCRIT 37.3 % (36.0-46.0); MCH 32.2 PG (29.0-34.0); MCHC 32.7 G/DL (30.0-36.0); MCV 98.4 FL (83-99); MEAN PLAT.VOLUME 9.4 uM^3 (9.5-12.4); PLATELET COUNT 152 K/uL (156-360); RBC DIS.WIDTH-CV 13.1 % (11.8-14.6); RBC DIS.WIDTH-SD 46.6 % (39-53); RED BLOOD COUNT 3.79 M/uL (3.80-5.20); WHITE BLOOD COUNT 5.9 K/uL (4.1-10.2)
[2016-12-22 20:04] LABS: CHLORIDE 111 mEq/L (99-109); POTASSIUM 3.5 mEq/L (3.7-5.4); SODIUM 140 mEq/L (136-147)
[2016-12-22 20:06] LABS: GLUCOSE 114 mg/dL (70-99)
[2016-12-22 20:07] LABS: ANION GAP 9 MEQ/L (2-14)
[2016-12-22 20:09] LABS: GFR ESTIMATE (CALCULATED) > 59 mL/min/
[2016-12-22 20:13] LABS: UREA NITROGEN (BUN) 22 mg/dL (9-23)
[2016-12-22 21:47] LABS: TROP-I INTERPRETATION NEGATIVE; TROPONIN-I < 0.01 ng/mL (0.0-0.30)
[2016-12-23 00:16] VITALS: BP 104/74
== END 2016-12-23 00:20 | disposition home or self-care (01) ==
LOC: EME 18:44
DX: J44.1 Chronic obstructive pulmonary disease with (acute) exacerbation (principal); F17.200 Nicotine dependence, unspecified, uncomplicated; I10 Essential (primary) hypertension; F32.9 Major depressive disorder, single episode, unspecified; K21.9 Gastro-esophageal reflux disease without esophagitis; G40.909 Epilepsy, unspecified, not intractable, without status epilepticus; Z88.6 Allergy status to analgesic agent; Z88.8 Allergy status to other drugs, medicaments and biological substances
CPT/HCPCS: 71020; 80048; 84484; 85027; 93005; 94640; 99281; 99285; J1100

== ENCOUNTER 2017-01-27 13:47 | Emergency (ER) | payer OTHER ==
[~2017-01-27] VITALS: Ht 157.5 cm; Wt 80.3 kg
[2017-01-27 15:02] LABS: HEMATOCRIT 39.9 % (36.0-46.0); MCH 32.4 PG (29.0-34.0); MCHC 33.6 G/DL (30.0-36.0); MCV 96.4 FL (83-99); MEAN PLAT.VOLUME 8.9 uM^3 (9.5-12.4); PLATELET COUNT 139 K/uL (156-360); RBC DIS.WIDTH-SD 46.5 % (39-53); RED BLOOD COUNT 4.14 M/uL (3.80-5.20); WHITE BLOOD COUNT 6.1 K/uL (4.1-10.2)
[2017-01-27 15:11] LABS: CHLORIDE 113 mEq/L (99-109); POTASSIUM 3.9 mEq/L (3.7-5.4); SODIUM 143 mEq/L (136-147)
[2017-01-27 15:13] LABS: GLUCOSE 105 mg/dL (70-99)
[2017-01-27 15:14] LABS: ANION GAP 7 MEQ/L (2-14)
[2017-01-27 15:17] LABS: GFR ESTIMATE (CALCULATED) 52 mL/min/
[2017-01-27 15:18] LABS: UREA NITROGEN (BUN) 20 mg/dL (9-23)
[2017-01-27 15:23] LABS: TROP-I INTERPRETATION NEGATIVE; TROPONIN-I < 0.01 ng/mL (0.0-0.30)
[2017-01-27 15:32] LABS: D-DIMER ELISA 0.34 mg/L FEU (< 0.57)
[2017-01-27] MEDS ORDERED: FLEXERIL10 MG PO (15:38)
[2017-01-27 16:08] VITALS: BP 96/741
== END 2017-01-27 16:13 | disposition home or self-care (01) ==
LOC: EME 13:47
PROVIDERS: Nurse Practitioner Family
DX: R07.81 Pleurodynia (principal); M62.838 Other muscle spasm; K21.9 Gastro-esophageal reflux disease without esophagitis; J44.9 Chronic obstructive pulmonary disease, unspecified; I10 Essential (primary) hypertension; R56.9 Unspecified convulsions; F17.200 Nicotine dependence, unspecified, uncomplicated
CPT/HCPCS: 70110; 71020; 80048; 84484; 85027; 85379; 93005; 99281; 99284

== ENCOUNTER 2017-02-25 06:19 | Day surgery (SDC) | payer OTHER ==
[~2017-02-25] VITALS: Ht 157.5 cm; Wt 78.9 kg
[~2017-02-25 06:19] MED LIST changes: +DESYREL100 MG PO
[2017-02-25 06:57] VITALS: BP 133/89
[2017-02-25] MEDS ORDERED: PERCOCET 5/31 TABLET PO (09:44)
[2017-02-25 13:10] VITALS: BP 121/83
[2017-02-25 14:14] VITALS: BP 136/88
== END 2017-02-25 14:20 | disposition home or self-care (01) ==
LOC: SDC
PROC: 0WUF4JZ Supplement Abdominal Wall with Synthetic Substitute, Percutaneous Endoscopic Approach (ICD-10-PCS; principal; 2017-02-25)
DX: K43.6 Other and unspecified ventral hernia with obstruction, without gangrene (principal); I10 Essential (primary) hypertension; J44.9 Chronic obstructive pulmonary disease, unspecified; K21.9 Gastro-esophageal reflux disease without esophagitis; F32.9 Major depressive disorder, single episode, unspecified; F17.210 Nicotine dependence, cigarettes, uncomplicated; Z82.49 Family history of ischemic heart disease and other diseases of the circulatory system; Z80.1 Family history of malignant neoplasm of trachea, bronchus and lung; Z80.3 Family history of malignant neoplasm of breast
CPT/HCPCS: 84132; C1781; J0131; J0690; J1100; J2250; J2405; J2710; J2765; J3010

== ENCOUNTER 2017-02-25 18:20 | Emergency (ER) | payer OTHER ==
[~2017-02-25] VITALS: Ht 157.5 cm; Wt 79.0 kg
[2017-02-25 20:11] LABS: EOSINOPHIL (%) 0.1 % (0-5); HEMATOCRIT 35.2 % (36.0-46.0); IMMATURE GRANULOCYTE (%) 0.3 % (0.0-0.7); INSTRUMENT ABS NEUTROPHIL CT 8.9 K/uL; LYMPHOCYTE COUNT 0.6 K/uL (1.0-2.8); MCH 32.2 PG (29.0-34.0); MCHC 33.5 G/DL (30.0-36.0); MCV 96.2 FL (83-99); MEAN PLAT.VOLUME 9.4 uM^3 (9.5-12.4); MONOCYTE (%) 2.5 % (3-12); MONOCYTE COUNT 0.3 K/uL (0-0.8); NEUTROPHIL (%) 90.5 % (45-76); NEUTROPHIL COUNT 8.9 K/uL (1.8-6.4); PLATELET COUNT 133 K/uL (156-360); RBC DIS.WIDTH-CV 12.5 % (11.8-14.6); RBC DIS.WIDTH-SD 44.1 % (39-53); WHITE BLOOD COUNT 9.8 K/uL (4.1-10.2)
[2017-02-25 20:13] LABS: RED BLOOD COUNT 3.66 M/uL (3.80-5.20)
[2017-02-25 20:28] LABS: CHLORIDE 111 mEq/L (99-109); POTASSIUM 4.2 mEq/L (3.7-5.4); SODIUM 141 mEq/L (136-147)
[2017-02-25 20:30] LABS: GLUCOSE 151 mg/dL (70-99)
[2017-02-25 20:32] LABS: ANION GAP 9 MEQ/L (2-14); TOTAL BILIRUBIN 0.2 mg/dL (0.0-1.0)
[2017-02-25 20:34] LABS: ALKALINE PHOSPHATASE 61 IU/L (3-129); GFR ESTIMATE (CALCULATED) > 59 mL/min/
[2017-02-25 20:35] LABS: UREA NITROGEN (BUN) 15 mg/dL (9-23)
[2017-02-25 21:23] VITALS: BP 105/71
== END 2017-02-25 21:25 | disposition home or self-care (01) ==
LOC: EME 18:20
PROVIDERS: Emergency Medicine
DX: L76.22 Postprocedural hemorrhage of skin and subcutaneous tissue following other procedure (principal); Z98.890 Other specified postprocedural states; I10 Essential (primary) hypertension; J44.9 Chronic obstructive pulmonary disease, unspecified; J45.909 Unspecified asthma, uncomplicated; Z90.49 Acquired absence of other specified parts of digestive tract; Z85.41 Personal history of malignant neoplasm of cervix uteri; Z90.710 Acquired absence of both cervix and uterus; F17.200 Nicotine dependence, unspecified, uncomplicated
CPT/HCPCS: 80053; 85025; 99281; 99284

== ENCOUNTER 2017-03-02 17:44 | Emergency (ER) | payer OTHER ==
[~2017-03-02] VITALS: Ht 157.5 cm; Wt 83.3 kg
[2017-03-02 18:23] LABS: EOSINOPHIL (%) 4.9 % (0-5); EOSINOPHIL COUNT 0.3 K/uL (0-0.3); HEMATOCRIT 36.7 % (36.0-46.0); IMMATURE GRANULOCYTE (%) 0.4 % (0.0-0.7); LYMPHOCYTE COUNT 1.8 K/uL (1.0-2.8); MCH 31.9 PG (29.0-34.0); MCV 96.8 FL (83-99); MONOCYTE (%) 4.5 % (3-12); MONOCYTE COUNT 0.2 K/uL (0-0.8); NEUTROPHIL (%) 55.5 % (45-76); RBC DIS.WIDTH-CV 12.6 % (11.8-14.6); RBC DIS.WIDTH-SD 44.7 % (39-53); RED BLOOD COUNT 3.79 M/uL (3.80-5.20); WHITE BLOOD COUNT 5.3 K/uL (4.1-10.2)
[2017-03-02 18:32] LABS: CHLORIDE 109 mEq/L (99-109); POTASSIUM 3.6 mEq/L (3.7-5.4); SODIUM 141 mEq/L (136-147)
[2017-03-02 18:34] LABS: GLUCOSE 92 mg/dL (70-99)
[2017-03-02 18:35] LABS: ANION GAP 9 MEQ/L (2-14)
[2017-03-02 18:38] LABS: GFR ESTIMATE (CALCULATED) 52 mL/min/
[2017-03-02 18:39] LABS: UREA NITROGEN (BUN) 14 mg/dL (9-23)
[2017-03-02 19:10] LABS: MEAN PLAT.VOLUME 9.4 uM^3 (9.5-12.4); PLAT.SUFFICIENCY DECREASED; PLATELET COUNT 135 K/uL (156-360)
[2017-03-02] MEDS ORDERED: HYCODAN SYRUP480 ML PO (20:32)
[2017-03-02 21:08] VITALS: BP 129/90
== END 2017-03-02 21:06 | disposition home or self-care (01) ==
LOC: EME → EDBD 17:44 → EME 21:06
PROVIDERS: Emergency Medicine
DX: R06.02 Shortness of breath (principal); J44.9 Chronic obstructive pulmonary disease, unspecified; F17.200 Nicotine dependence, unspecified, uncomplicated; Z98.890 Other specified postprocedural states; Z85.41 Personal history of malignant neoplasm of cervix uteri; Z95.5 Presence of coronary angioplasty implant and graft; Z88.6 Allergy status to analgesic agent; Z88.1 Allergy status to other antibiotic agents
CPT/HCPCS: 71275; 80048; 85025; 94640; 99281; 99285; J7644

== ENCOUNTER 2017-03-22 15:45 | Emergency (ER) | payer OTHER ==
[~2017-03-22] VITALS: Ht 157.5 cm; Wt 72.3 kg
[2017-03-22 16:03] LABS: HEMATOCRIT 37.3 % (36.0-46.0); MCH 31.7 PG (29.0-34.0); MCHC 32.4 G/DL (30.0-36.0); MCV 97.6 FL (83-99); MEAN PLAT.VOLUME 9.5 uM^3 (9.5-12.4); PLATELET COUNT 120 K/uL (156-360); RBC DIS.WIDTH-CV 12.6 % (11.8-14.6); RED BLOOD COUNT 3.82 M/uL (3.80-5.20)
[2017-03-22 16:16] LABS: CHLORIDE 112 mEq/L (99-109); POTASSIUM 3.3 mEq/L (3.7-5.4); SODIUM 139 mEq/L (136-147)
[2017-03-22 16:17] LABS: GLUCOSE 95 mg/dL (70-99)
[2017-03-22 16:19] LABS: ANION GAP 8 MEQ/L (2-14)
[2017-03-22 16:21] LABS: GFR ESTIMATE (CALCULATED) > 59 mL/min/
[2017-03-22 16:22] LABS: UREA NITROGEN (BUN) 18 mg/dL (9-23)
[2017-03-22 16:30] LABS: TROP-I INTERPRETATION NEGATIVE; TROPONIN-I < 0.01 ng/mL (0.0-0.30)
[2017-03-22 18:30] VITALS: BP 148/86
== END 2017-03-22 18:36 | disposition home or self-care (01) ==
LOC: EME 15:45
DX: R07.9 Chest pain, unspecified (principal); M54.9 Dorsalgia, unspecified; I10 Essential (primary) hypertension; J44.9 Chronic obstructive pulmonary disease, unspecified; Z82.49 Family history of ischemic heart disease and other diseases of the circulatory system; Z85.41 Personal history of malignant neoplasm of cervix uteri; Z90.710 Acquired absence of both cervix and uterus; Z90.49 Acquired absence of other specified parts of digestive tract; F17.200 Nicotine dependence, unspecified, uncomplicated
CPT/HCPCS: 71020; 80048; 84484; 85027; 93005; 99281; 99284

== ENCOUNTER 2017-03-29 13:22 | Emergency (ER) | payer OTHER ==
[~2017-03-29] VITALS: Ht 157.5 cm; Wt 77.5 kg
[2017-03-29 14:13] LABS: HEMATOCRIT 37.3 % (36.0-46.0); MCH 32.5 PG (29.0-34.0); MCHC 33.8 G/DL (30.0-36.0); MCV 96.1 FL (83-99); MEAN PLAT.VOLUME 9.6 uM^3 (9.5-12.4); PLATELET COUNT 117 K/uL (156-360); RBC DIS.WIDTH-CV 12.3 % (11.8-14.6); RBC DIS.WIDTH-SD 43.7 % (39-53); RED BLOOD COUNT 3.88 M/uL (3.80-5.20); WHITE BLOOD COUNT 4.9 K/uL (4.1-10.2)
[2017-03-29 14:24] LABS: CHLORIDE 112 mEq/L (99-109); POTASSIUM 3.5 mEq/L (3.7-5.4); SODIUM 140 mEq/L (136-147)
[2017-03-29 14:26] LABS: GLUCOSE 94 mg/dL (70-99)
[2017-03-29 14:27] LABS: ANION GAP 10 MEQ/L (2-14)
[2017-03-29 14:28] LABS: TOTAL BILIRUBIN 0.5 mg/dL (0.0-1.0)
[2017-03-29 14:29] LABS: ALKALINE PHOSPHATASE 64 IU/L (3-129)
[2017-03-29 14:30] LABS: GFR ESTIMATE (CALCULATED) > 59 mL/min/
[2017-03-29 14:31] LABS: UREA NITROGEN (BUN) 9 mg/dL (9-23)
[2017-03-29 14:33] LABS: LIPASE 4 U/L (1.0-51.0)
[2017-03-29 15:48] LABS: ADD MIUA? NO; BILIRUBIN NEGATIVE; BLOOD NEGATIVE; COLOR STRAW ((YELLOW)); GLUCOSE (STRIP) NEGATIVE; KETONES NEGATIVE; LEUKOCYTES NEGATIVE; NITRITE NEGATIVE; PROTEIN (STRIP) NEGATIVE; SPECIFIC GRAVITY 1.029 (1.000-1.030); UROBILINOGEN 0.2 MG/DL (0.2-1.0)
[2017-03-29] MEDS ORDERED: ZOFRAN ODT4 MG PO (16:05)
[2017-03-29] MEDS ORDERED: BENTYL10 MG PO (16:05)
[2017-03-29 16:41] VITALS: BP 136/82
== END 2017-03-29 16:41 | disposition home or self-care (01) ==
LOC: EME 13:22
PROVIDERS: Nurse Practitioner Family
DX: K52.9 Noninfective gastroenteritis and colitis, unspecified (principal); M96.840 Postprocedural hematoma of a musculoskeletal structure following a musculoskeletal system procedure; Y83.8 Other surgical procedures as the cause of abnormal reaction of the patient, or of later complication, without mention of misadventure at the time of the procedure; Z85.41 Personal history of malignant neoplasm of cervix uteri; Z90.710 Acquired absence of both cervix and uterus; F17.200 Nicotine dependence, unspecified, uncomplicated
CPT/HCPCS: 74177; 80053; 81003; 83690; 85027; 99281; 99284; J2405; J3010; J7030

== ENCOUNTER 2017-04-13 15:21 | Emergency (ER) | payer OTHER ==
[~2017-04-13] VITALS: Ht 157.5 cm; Wt 48.0 kg
[2017-04-13 15:59] LABS: EOSINOPHIL (%) 1.6 % (0-5); EOSINOPHIL COUNT 0.1 K/uL (0-0.3); HEMATOCRIT 42.8 % (36.0-46.0); IMMATURE GRANULOCYTE (%) 0.4 % (0.0-0.7); INSTRUMENT ABS NEUTROPHIL CT 3.5 K/uL; LYMPHOCYTE COUNT 1.7 K/uL (1.0-2.8); MCH 31.8 PG (29.0-34.0); MCHC 32.9 G/DL (30.0-36.0); MCV 96.6 FL (83-99); MEAN PLAT.VOLUME 9.4 uM^3 (9.5-12.4); MONOCYTE (%) 4.5 % (3-12); MONOCYTE COUNT 0.3 K/uL (0-0.8); NEUTROPHIL (%) 62.2 % (45-76); NEUTROPHIL COUNT 3.5 K/uL (1.8-6.4); RBC DIS.WIDTH-CV 12.7 % (11.8-14.6); RBC DIS.WIDTH-SD 45.7 % (39-53); RED BLOOD COUNT 4.43 M/uL (3.80-5.20); WHITE BLOOD COUNT 5.5 K/uL (4.1-10.2)
[2017-04-13 16:00] LABS: PLATELET COUNT 162 K/uL (156-360)
[2017-04-13 16:12] LABS: CHLORIDE 107 mEq/L (99-109); POTASSIUM 3.5 mEq/L (3.7-5.4); SODIUM 140 mEq/L (136-147)
[2017-04-13 16:14] LABS: GLUCOSE 89 mg/dL (70-99)
[2017-04-13 16:16] LABS: ANION GAP 12 MEQ/L (2-14)
[2017-04-13 16:17] LABS: SERUM ETHYL ALCOHOL < 10 mg/dL
[2017-04-13 16:18] LABS: GFR ESTIMATE (CALCULATED) 57 mL/min/
[2017-04-13 16:19] LABS: UREA NITROGEN (BUN) 10 mg/dL (9-23)
[2017-04-13 17:40] LABS: AMPHETAMINE NEGATIVE (500 ng/mL); BARBITURATES NEGATIVE (200 ng/mL); BENZODIAZEPINES PRESUMPTIVE POSITIVE (150 ng/mL); COCAINE NEGATIVE (150 ng/mL); INTERNAL CONTROLS VALID? YES; METHADONE NEGATIVE (200 ng/mL); METHAMPHETAMINE NEGATIVE (500 ng/mL); OPIATES (MORPHINE) NEGATIVE (100 ng/mL); OXYCODONE NEGATIVE (100 ng/mL); PHENCYCLIDINE NEGATIVE (25 ng/mL); PROPOXYPHENE NEGATIVE (300 ng/mL); THC CANNABINOIDS NEGATIVE (50 ng/mL); TRICYCLIC ANTIDEPRESSANTS PRESUMPTIVE POSITIVE (300 ng/mL)
[2017-04-13 17:41] LABS: ADD MEDTOX COMMENT Y
[2017-04-13 17:45] LABS: BILIRUBIN NEGATIVE; BLOOD NEGATIVE; COLOR YELLOW ((YELLOW)); GLUCOSE (STRIP) NEGATIVE; KETONES NEGATIVE; LEUKOCYTES NEGATIVE; NITRITE NEGATIVE; PROTEIN (STRIP) NEGATIVE; UROBILINOGEN 0.2 MG/DL (0.2-1.0)
[2017-04-13 18:10] LABS: ADD MIUA? NO
[2017-04-13 18:33] LABS: BENZODIAZEPINES QUANT VALUE 0 NG/ML; BENZODIAZEPINES, URINE SCREEN Negative (200 ng/mL)
[2017-04-13 21:48] VITALS: BP 117/75
== END 2017-04-13 21:50 ==
LOC: EME 15:21
PROVIDERS: Emergency Medicine
DX: F33.2 Major depressive disorder, recurrent severe without psychotic features (principal); R45.851 Suicidal ideations; I10 Essential (primary) hypertension; J44.9 Chronic obstructive pulmonary disease, unspecified; Z85.41 Personal history of malignant neoplasm of cervix uteri; Z90.710 Acquired absence of both cervix and uterus; F17.200 Nicotine dependence, unspecified, uncomplicated
CPT/HCPCS: 80048; 81003; 84999; 85025; 90837; 99281; 99285; G0480

== ENCOUNTER 2017-04-29 14:53 | Emergency (ER) | payer OTHER ==
[~2017-04-29] VITALS: Ht 157.5 cm; Wt 80.0 kg
[2017-04-29] MEDS ORDERED: FIORICET 50-301 EACH PO (17:24)
[2017-04-29 18:15] VITALS: BP 136/99
== END 2017-04-29 18:25 | disposition home or self-care (01) ==
LOC: EME 14:53
DX: R51 Headache (principal); R11.0 Nausea; H53.149 Visual discomfort, unspecified; G89.29 Other chronic pain; M54.2 Cervicalgia; M25.511 Pain in right shoulder; I10 Essential (primary) hypertension; J44.9 Chronic obstructive pulmonary disease, unspecified; Z85.41 Personal history of malignant neoplasm of cervix uteri; Z90.710 Acquired absence of both cervix and uterus; Z90.49 Acquired absence of other specified parts of digestive tract; F17.200 Nicotine dependence, unspecified, uncomplicated
CPT/HCPCS: 99281; 99284; J0780; J1100; J1885; J7030

== ENCOUNTER 2017-05-07 04:39 | Emergency (ER) | payer OTHER ==
[~2017-05-07] VITALS: Ht 157.5 cm; Wt 76.9 kg
[2017-05-07 05:00] LABS: HEMATOCRIT 40.5 % (36.0-46.0); MCH 32.5 PG (29.0-34.0); MCHC 33.3 G/DL (30.0-36.0); MCV 97.4 FL (83-99); MEAN PLAT.VOLUME 9.1 uM^3 (9.5-12.4); PLATELET COUNT 178 K/uL (156-360); RBC DIS.WIDTH-CV 13.2 % (11.8-14.6); RBC DIS.WIDTH-SD 47.9 % (39-53); RED BLOOD COUNT 4.16 M/uL (3.80-5.20); WHITE BLOOD COUNT 6.1 K/uL (4.1-10.2)
[2017-05-07 05:16] LABS: CHLORIDE 108 mEq/L (99-109); POTASSIUM 3.5 mEq/L (3.7-5.4); SODIUM 139 mEq/L (136-147)
[2017-05-07 05:17] LABS: GLUCOSE 94 mg/dL (70-99)
[2017-05-07 05:19] LABS: ANION GAP 12 MEQ/L (2-14)
[2017-05-07 05:21] LABS: GFR ESTIMATE (CALCULATED) > 59 mL/min/
[2017-05-07 05:22] LABS: UREA NITROGEN (BUN) 18 mg/dL (9-23)
[2017-05-07 05:24] LABS: TROP-I INTERPRETATION NEGATIVE; TROPONIN-I < 0.01 ng/mL (0.0-0.30)
[2017-05-07] MEDS ORDERED: TYLENOL WITH C1 EACH PO (07:21)
[2017-05-07 07:51] LABS: TROP-I INTERPRETATION NEGATIVE; TROPONIN-I < 0.01 ng/mL (0.0-0.30)
[2017-05-07 08:30] VITALS: BP 133/82
== END 2017-05-07 08:33 | disposition home or self-care (01) ==
LOC: EME 04:39
PROVIDERS: Emergency Medicine
DX: R07.89 Other chest pain (principal); J44.9 Chronic obstructive pulmonary disease, unspecified; I10 Essential (primary) hypertension; F31.9 Bipolar disorder, unspecified; R56.9 Unspecified convulsions; F41.9 Anxiety disorder, unspecified; Z87.891 Personal history of nicotine dependence; Z88.1 Allergy status to other antibiotic agents; Z88.8 Allergy status to other drugs, medicaments and biological substances
CPT/HCPCS: 71020; 80048; 84484; 85027; 93005; 94640; 99281; 99285

== ENCOUNTER 2017-06-09 19:34 | Emergency (ER) | payer OTHER ==
[~2017-06-09] VITALS: Ht 157.5 cm; Wt 82.5 kg
[~2017-06-09 19:34] MED LIST changes: +TYLENOL WITH C1 EACH PO
[2017-06-09 19:52] LABS: HEMATOCRIT 38.3 % (36.0-46.0); MCH 32.6 PG (29.0-34.0); MCHC 33.7 G/DL (30.0-36.0); MCV 96.7 FL (83-99); MEAN PLAT.VOLUME 9.4 uM^3 (9.5-12.4); PLATELET COUNT 178 K/uL (156-360); RBC DIS.WIDTH-CV 12.2 % (11.8-14.6); RBC DIS.WIDTH-SD 43.9 % (39-53); RED BLOOD COUNT 3.96 M/uL (3.80-5.20); WHITE BLOOD COUNT 6.7 K/uL (4.1-10.2)
[2017-06-09 20:00] LABS: CHLORIDE 114 mEq/L (99-109); POTASSIUM 3.7 mEq/L (3.7-5.4); SODIUM 137 mEq/L (136-147)
[2017-06-09 20:02] LABS: GLUCOSE 98 mg/dL (70-99)
[2017-06-09 20:04] LABS: ANION GAP 7 MEQ/L (2-14)
[2017-06-09 20:06] LABS: GFR ESTIMATE (CALCULATED) > 59 mL/min/
[2017-06-09 20:07] LABS: UREA NITROGEN (BUN) 22 mg/dL (9-23)
[2017-06-09 20:12] LABS: TROP-I INTERPRETATION NEGATIVE; TROPONIN-I < 0.01 ng/mL (0.0-0.30)
[2017-06-09 22:55] LABS: TROP-I INTERPRETATION NEGATIVE; TROPONIN-I < 0.01 ng/mL (0.0-0.30)
[2017-06-09 23:16] VITALS: BP 120/74
== END 2017-06-09 23:18 | disposition home or self-care (01) ==
LOC: EME 19:34
PROVIDERS: Emergency Medicine
DX: R07.9 Chest pain, unspecified (principal); J45.909 Unspecified asthma, uncomplicated; F17.200 Nicotine dependence, unspecified, uncomplicated; R56.9 Unspecified convulsions; F32.9 Major depressive disorder, single episode, unspecified; F41.9 Anxiety disorder, unspecified; Z85.9 Personal history of malignant neoplasm, unspecified; Z88.8 Allergy status to other drugs, medicaments and biological substances
CPT/HCPCS: 71020; 80048; 84484; 85027; 93005; 99281; 99285

== ENCOUNTER 2017-08-01 19:48 | Observation (INO) | payer OTHER ==
[~2017-08-01] VITALS: Ht 157.5 cm; Wt 82.3 kg
[2017-08-01 20:56] LABS: BASOPHIL (%) 0.7 % (0-1); EOSINOPHIL (%) 1.6 % (0-5); EOSINOPHIL COUNT 0.1 K/uL (0-0.3); HEMATOCRIT 38.9 % (36.0-46.0); HEMOGLOBIN 13.5 G/DL (11.9-15.5); IMMATURE GRANULOCYTE (%) 0.5 % (0.0-0.7); LYMPHOCYTE COUNT 2.3 K/uL (1.0-2.8); MCH 33.3 PG (29.0-34.0); MCHC 34.7 G/DL (30.0-36.0); MCV 95.8 FL (83-99); MONOCYTE (%) 5.7 % (3-12); MONOCYTE COUNT 0.4 K/uL (0-0.8); NEUTROPHIL (%) 53.5 % (45-76); NEUTROPHIL COUNT 3.3 K/uL (1.8-6.4); PLATELET COUNT 153 K/uL (156-360); RBC DIS.WIDTH-CV 12.2 % (11.8-14.6); RBC DIS.WIDTH-SD 42.8 % (39-53); RED BLOOD COUNT 4.06 M/uL (3.80-5.20); WHITE BLOOD COUNT 6.1 K/uL (4.1-10.2)
[2017-08-01 21:09] LABS: ALBUMIN 4.2 g/dL (3.2-4.8); CHLORIDE 107 mEq/L (99-109); POTASSIUM 3.3 mEq/L (3.7-5.4); SODIUM 138 mEq/L (136-147)
[2017-08-01 21:11] LABS: GLUCOSE 101 mg/dL (70-99); TOTAL PROTEIN 6.8 g/dL (6.4-8.3)
[2017-08-01 21:13] LABS: TOTAL BILIRUBIN 0.2 mg/dL (0.0-1.0)
[2017-08-01 21:15] LABS: ALKALINE PHOSPHATASE 53 IU/L (3-129); GFR ESTIMATE (CALCULATED) > 59 mL/min/
[2017-08-01 21:16] LABS: UREA NITROGEN (BUN) 12 mg/dL (9-23)
[2017-08-01 21:17] LABS: AST (GOT) 9 IU/L (2-34)
[2017-08-01 21:18] LABS: ALT (GPT) 5 IU/L (3-49); TROP-I INTERPRETATION NEGATIVE; TROPONIN-I < 0.01 ng/mL (0.0-0.30)
[2017-08-01 21:22] LABS: APPEARANCE CLEAR ((CLEAR)); BILIRUBIN NEGATIVE; BLOOD NEGATIVE; COLOR STRAW ((YELLOW)); GLUCOSE (STRIP) NEGATIVE; KETONES NEGATIVE; LEUKOCYTES NEGATIVE; NITRITE NEGATIVE; PROTEIN (STRIP) NEGATIVE; SPECIFIC GRAVITY 1.009 (1.000-1.030); UCUL ADDED? NO; UROBILINOGEN 0.2 MG/DL (0.2-1.0)
[2017-08-01 21:26] LABS: QUANTITATIVE HCG 8.1 MIU/ML
[2017-08-01 22:01] LABS: HDL CHOLESTEROL 35 MG/DL (Desirable>=50); LDL CHOLESTEROL 143 mg/dL (Desirable<100); NON-HDL CHOLESTEROL 205 mg/dL (Desirable<160); TOTAL CHOLESTEROL 240 mg/dL (Desirable<200); TRIGLYCERIDES 310 MG/DL (Normal: <150)
[2017-08-01] MEDS ORDERED: LAMOTRIGINE150 MG PO (22:39)
[2017-08-01] MEDS ORDERED: RISPERDAL2 MG PO (22:40)
[2017-08-01] MEDS ORDERED: METFORMIN HCL500 MG PO (22:41)
[2017-08-01] MEDS ORDERED: DOXEPIN HCL25 MG PO (22:41)
[2017-08-01] MEDS ORDERED: RIZATRIPTAN5 MG PO (23:02)
[2017-08-01] MEDS ORDERED: TIZANIDINE HCL2 MG PO (23:02)
[2017-08-01] MEDS ORDERED: PROMETHAZINE HC25 M1 PO (23:03)
[2017-08-02 07:31] VITALS: BP 137/87
[2017-08-02 07:46] LABS: HEMOGLOBIN A1c (GLYCOHEMOGLOB) 5.2 % HGB (Below 5.7)
[2017-08-02 11:54] VITALS: BP 142/75
[2017-08-02 15:59] VITALS: BP 111/62
[2017-08-02 21:10] VITALS: BP 126/80
[2017-08-03 01:08] VITALS: BP 112/58
[2017-08-03 04:56] VITALS: BP 109/56
[2017-08-03 09:45] VITALS: BP 113/63
[2017-08-03 11:52] VITALS: BP 146/57
[2017-08-03] MEDS ORDERED: AMITRIPTYLINE H10 MG PO (13:35)
[2017-08-03] MEDS ORDERED: CLONAZEPAM1 MG PO (13:35)
[2017-08-03] MEDS ORDERED: DESYREL100 MG PO ×2 (13:35→14:17)
== END 2017-08-03 16:03 | disposition home or self-care (01) ==
LOC: EME 19:48 → EDOF 22:01 → 5WEST 22:01 → EDOF 22:01 → ENRESERV 22:02 → 5WEST 08-02 07:13
PROVIDERS: Emergency Medicine
DX: R53.1 Weakness (principal); R20.0 Anesthesia of skin; G43.109 Migraine with aura, not intractable, without status migrainosus; F31.9 Bipolar disorder, unspecified; I10 Essential (primary) hypertension; E78.5 Hyperlipidemia, unspecified; M19.90 Unspecified osteoarthritis, unspecified site; J44.9 Chronic obstructive pulmonary disease, unspecified; G89.29 Other chronic pain; F41.9 Anxiety disorder, unspecified; Z79.891 Long term (current) use of opiate analgesic; R07.9 Chest pain, unspecified; E66.9 Obesity, unspecified; Z68.30 Body mass index [BMI] 30.0-30.9, adult; K21.9 Gastro-esophageal reflux disease without esophagitis; R56.9 Unspecified convulsions; F17.200 Nicotine dependence, unspecified, uncomplicated; Z85.41 Personal history of malignant neoplasm of cervix uteri; Z90.49 Acquired absence of other specified parts of digestive tract; Z90.710 Acquired absence of both cervix and uterus; Z88.1 Allergy status to other antibiotic agents; Z88.6 Allergy status to analgesic agent; Z88.8 Allergy status to other drugs, medicaments and biological substances; Z91.09 Other allergy status, other than to drugs and biological substances; Z83.3 Family history of diabetes mellitus; Z82.49 Family history of ischemic heart disease and other diseases of the circulatory system; Z80.9 Family history of malignant neoplasm, unspecified
CPT/HCPCS: 70450; 70551; 71045; 80053; 80061; 81003; 83036; 84443; 84484; 84702; 85025; 93005; 93880; 94640; 94640 76; 94760; 99202; 99281; 99285; G0378; J1100; J1200; J1650; J1885; J2765; J7030

== ENCOUNTER 2017-09-02 10:07 | Day surgery (SDC) | payer OTHER ==
[~2017-09-02] VITALS: Ht 157.5 cm; Wt 80.7 kg
[~2017-09-02 10:07] MED LIST changes: +AMITRIPTYLINE H10 MG PO; +DOXEPIN HCL25 MG PO; +GLUCOPHAGE500 MG PO; +LAMICTAL150 M1 PO; +LAMOTRIGINE150 MG PO; -LISINOPRIL10 MG PO; +METFORMIN HCL500 MG PO; +PROMETHAZINE HC25 M1 PO; +RISPERDAL2 MG PO; +RIZATRIPTAN5 MG PO; +TIZANIDINE HCL2 MG PO; +ZANAFLEX2 M1 PO; +ZESTRIL5 MG PO
[2017-09-02 11:22] VITALS: BP 126/76
[2017-09-02 15:45] VITALS: BP 127/82
[2017-09-02 16:45] VITALS: BP 131/85
== END 2017-09-02 17:10 | disposition home or self-care (01) ==
LOC: SDC 10:07
PROC: 0LQ20ZZ Repair Left Shoulder Tendon, Open Approach (ICD-10-PCS; principal; 2017-09-02)
DX: M75.42 Impingement syndrome of left shoulder (principal); M19.012 Primary osteoarthritis, left shoulder; M75.102 Unspecified rotator cuff tear or rupture of left shoulder, not specified as traumatic; M75.52 Bursitis of left shoulder; J45.909 Unspecified asthma, uncomplicated; I10 Essential (primary) hypertension; F41.8 Other specified anxiety disorders; M06.9 Rheumatoid arthritis, unspecified; K44.9 Diaphragmatic hernia without obstruction or gangrene; Z85.41 Personal history of malignant neoplasm of cervix uteri; Z88.1 Allergy status to other antibiotic agents; F17.210 Nicotine dependence, cigarettes, uncomplicated
CPT/HCPCS: 84132; J0131; J0690; J1100; J1170; J1885; J2250; J2405; J2550; J2710; J2795; J3010; S0020

== ENCOUNTER 2017-10-29 20:56 | Emergency (ER) | payer OTHER ==
[~2017-10-29] VITALS: Ht 157.5 cm; Wt 79.0 kg
[2017-10-29 21:50] LABS: HEMATOCRIT 35.6 % (36.0-46.0); HEMOGLOBIN 12.4 G/DL (11.9-15.5); MCH 33.4 PG (29.0-34.0); MCHC 34.8 G/DL (30.0-36.0); PLATELET COUNT 165 K/uL (156-360); RBC DIS.WIDTH-CV 11.9 % (11.8-14.6); RBC DIS.WIDTH-SD 42.1 % (39-53); RED BLOOD COUNT 3.71 M/uL (3.80-5.20); WHITE BLOOD COUNT 6.3 K/uL (4.1-10.2)
[2017-10-29 21:59] LABS: D-DIMER ELISA < 150.00 ng/mLDDU (<230)
[2017-10-29 22:10] LABS: ALBUMIN 3.8 g/dL (3.2-4.8); CHLORIDE 107 mEq/L (99-109); POTASSIUM 3.4 mEq/L (3.7-5.4); SODIUM 139 mEq/L (136-147)
[2017-10-29 22:13] LABS: GLUCOSE 94 mg/dL (70-99)
[2017-10-29 22:15] LABS: TOTAL BILIRUBIN 0.1 mg/dL (0.0-1.0)
[2017-10-29 22:16] LABS: ALKALINE PHOSPHATASE 46 IU/L (3-129); CREATININE 0.9 mg/dL (0.6-1.3); GFR ESTIMATE (CALCULATED) > 59 mL/min/
[2017-10-29 22:17] LABS: UREA NITROGEN (BUN) 14 mg/dL (9-23)
[2017-10-29 22:18] LABS: AST (GOT) 8 IU/L (2-34)
[2017-10-29 22:19] LABS: ALT (GPT) 4 IU/L (3-49)
[2017-10-29 22:20] LABS: LIPASE 20 U/L (1.0-51.0)
[2017-10-29 22:22] LABS: TROP-I INTERPRETATION NEGATIVE; TROPONIN-I < 0.01 ng/mL (0.0-0.30)
[2017-10-30 01:30] VITALS: BP 155/90
[2017-10-30 01:34] LABS: TROP-I INTERPRETATION NEGATIVE; TROPONIN-I < 0.01 ng/mL (0.0-0.30)
== END 2017-10-30 02:29 | disposition home or self-care (01) ==
LOC: EME 20:56
PROVIDERS: Emergency Medicine
DX: R07.89 Other chest pain (principal); Z86.73 Personal history of transient ischemic attack (TIA), and cerebral infarction without residual deficits; F17.200 Nicotine dependence, unspecified, uncomplicated; Z85.41 Personal history of malignant neoplasm of cervix uteri; K58.9 Irritable bowel syndrome, unspecified; F10.10 Alcohol abuse, uncomplicated; Z90.710 Acquired absence of both cervix and uterus; Z79.84 Long term (current) use of oral hypoglycemic drugs; Z88.6 Allergy status to analgesic agent; Z88.1 Allergy status to other antibiotic agents; Z88.8 Allergy status to other drugs, medicaments and biological substances; J45.909 Unspecified asthma, uncomplicated; F32.9 Major depressive disorder, single episode, unspecified; F41.9 Anxiety disorder, unspecified
CPT/HCPCS: 71045; 80053; 83690; 84484; 85027; 85379; 93005; 99281; 99285; J2765

== ENCOUNTER 2017-11-30 12:47 | Emergency (ER) | payer OTHER ==
[~2017-11-30] VITALS: Ht 157.5 cm; Wt 71.5 kg
[2017-11-30 15:23] VITALS: BP 137/97
== END 2017-11-30 15:23 | disposition home or self-care (01) ==
LOC: EME 12:47
DX: S20.219A Contusion of unspecified front wall of thorax, initial encounter (principal); V43.62XA Car passenger injured in collision with other type car in traffic accident, initial encounter; Y92.410 Unspecified street and highway as the place of occurrence of the external cause; M54.2 Cervicalgia; Z85.41 Personal history of malignant neoplasm of cervix uteri; F17.200 Nicotine dependence, unspecified, uncomplicated; J43.9 Emphysema, unspecified; K58.9 Irritable bowel syndrome, unspecified; Z90.710 Acquired absence of both cervix and uterus; Z88.6 Allergy status to analgesic agent
CPT/HCPCS: 70450; 71250; 72125; 74176; 99281; 99284

== ENCOUNTER 2018-02-01 12:40 | Inpatient (IN) | payer OTHER ==
[~2018-02-01] VITALS: Ht 157.5 cm; Wt 77.3 kg
[2018-02-01 13:40] LABS: HEMATOCRIT 43.2 % (36.0-46.0); HEMOGLOBIN 14.6 G/DL (11.9-15.5); MCHC 33.8 G/DL (30.0-36.0); MCV 97.5 FL (83-99); PLATELET COUNT 193 K/uL (156-360); RBC DIS.WIDTH-CV 13.4 % (11.8-14.6); RBC DIS.WIDTH-SD 48.5 % (39-53); RED BLOOD COUNT 4.43 M/uL (3.80-5.20); WHITE BLOOD COUNT 7.6 K/uL (4.1-10.2)
[2018-02-01 13:58] LABS: AMPHETAMINE NEGATIVE (500 ng/mL); BARBITURATES NEGATIVE (200 ng/mL); BENZODIAZEPINES PRESUMPTIVE POSITIVE (150 ng/mL); BUPRENORPHINE NEGATIVE (10 ng/mL); COCAINE NEGATIVE (150 ng/mL); METHADONE NEGATIVE (200 ng/mL); METHAMPHETAMINE PRESUMPTIVE POSITIVE (500 ng/mL); OPIATES (MORPHINE) NEGATIVE (100 ng/mL); OXYCODONE NEGATIVE (100 ng/mL); PHENCYCLIDINE NEGATIVE (25 ng/mL); PROPOXYPHENE NEGATIVE (300 ng/mL); THC CANNABINOIDS PRESUMPTIVE POSITIVE (50 ng/mL); TRICYCLIC ANTIDEPRESSANTS NEGATIVE (300 ng/mL)
[2018-02-01 14:26] LABS: CHLORIDE 108 mEq/L (99-109); POTASSIUM 4.6 mEq/L (3.7-5.4); SODIUM 140 mEq/L (136-147)
[2018-02-01 14:28] LABS: GLUCOSE 106 mg/dL (70-99)
[2018-02-01 14:31] LABS: SERUM ETHYL ALCOHOL < 10 mg/dL
[2018-02-01 14:32] LABS: CREATININE 1.3 mg/dL (0.6-1.3); GFR ESTIMATE (CALCULATED) 47 mL/min/
[2018-02-01 14:34] LABS: UREA NITROGEN (BUN) 25 mg/dL (9-23)
[2018-02-01 14:35] LABS: ACETAMINOPHEN (TYLENOL) < 10 mcg/mL (10-30); SALICYLATE < 5.0 MG/DL (15-30)
[2018-02-01 15:10] LABS: BENZODIAZEPINES, URINE SCREEN Negative (200 ng/mL)
[2018-02-01] MEDS ORDERED: PROZAC20 MG PO (16:24)
[2018-02-01] MEDS ORDERED: AMBIEN5 MG PO (16:25)
[2018-02-01] MEDS ORDERED: PERCOCET 5/31 TABLET PO (16:26)
[2018-02-01 16:37] VITALS: BP 124/71
[2018-02-01 16:48] VITALS: BP 124/71
[2018-02-02 08:05] VITALS: BP 115/71
[2018-02-02 13:51] LABS: ALBUMIN 4.3 G/DL (3.2-4.8); ALKALINE PHOSPHATASE 58 IU/L (3-129); ALT (GPT) 14 IU/L (3-49); AST (GOT) 11 IU/L (2-34); CHLORIDE 106 MEQ/L (99-109); GFR ESTIMATE (CALCULATED) > 59 mL/min/; POTASSIUM 3.8 MEQ/L (3.7-5.4); SODIUM 137 MEQ/L (136-147); TOTAL BILIRUBIN 0.4 MG/DL (0.0-1.0); TOTAL PROTEIN 7.2 G/DL (6.4-8.3); UREA NITROGEN (BUN) 24 mg/dL (9-23)
[2018-02-02 13:56] LABS: GLUCOSE 66 mg/dL (70-99)
[2018-02-02 15:27] VITALS: BP 110/77
[2018-02-03 07:54] VITALS: BP 117/77
[2018-02-03 15:57] VITALS: BP 122/60
[2018-02-04 07:55] VITALS: BP 125/79
[2018-02-04] MEDS ORDERED: PROZAC40 MG PO ×2 (08:29→09:19)
[2018-02-04] MEDS ORDERED: NALTREXONE HCL50 MG PO (08:29)
== END 2018-02-04 11:00 | disposition home or self-care (01) | DRG 885 ==
LOC: EME 12:40 → EDOF 15:05 → 1WEST 15:05 → ENRESERV 16:03 → 1WEST 02-04 11:00
PROVIDERS: Emergency Medicine; Psychiatry & Neurology Psychiatry
DX: F33.1 Major depressive disorder, recurrent, moderate (principal); F11.10 Opioid abuse, uncomplicated; F12.10 Cannabis abuse, uncomplicated; F14.10 Cocaine abuse, uncomplicated; F17.210 Nicotine dependence, cigarettes, uncomplicated; I10 Essential (primary) hypertension; J44.9 Chronic obstructive pulmonary disease, unspecified; G89.29 Other chronic pain; E78.5 Hyperlipidemia, unspecified; F41.1 Generalized anxiety disorder; E66.9 Obesity, unspecified; R45.851 Suicidal ideations; Z68.31 Body mass index [BMI] 31.0-31.9, adult; Z85.41 Personal history of malignant neoplasm of cervix uteri; Z90.710 Acquired absence of both cervix and uterus; Z83.3 Family history of diabetes mellitus
CPT/HCPCS: 80048; 80053; 82948; 84999; 85027; 90837; 94640; 94799; 97150 GO; 97165 GO; 97530 GO; 99281; 99285; G0480

== ENCOUNTER 2018-02-08 15:23 | Inpatient (IN) | payer OTHER ==
[~2018-02-08] VITALS: Ht 157.5 cm; Wt 76.3 kg
[~2018-02-08 15:23] MED LIST changes: +NALTREXONE HCL50 MG PO; +PROZAC40 MG PO
[2018-02-08 16:29] LABS: APPEARANCE SL.HAZY ((CLEAR)); BILIRUBIN NEGATIVE; BLOOD NEGATIVE; COLOR YELLOW ((YELLOW)); GLUCOSE (STRIP) NEGATIVE; KETONES NEGATIVE; LEUKOCYTES NEGATIVE; NITRITE NEGATIVE; PROTEIN (STRIP) NEGATIVE; SPECIFIC GRAVITY 1.025 (1.000-1.030); UROBILINOGEN 0.2 MG/DL (0.2-1.0)
[2018-02-08 16:35] LABS: BACTERIA NONE SEEN /HPF; EPITHELIAL CELLS 1+ /HPF; MUCUS TRACE /LPF; WHITE BLOOD CELLS 0-5 /HPF (0-5)
[2018-02-08 16:48] LABS: HEMATOCRIT 43.7 % (36.0-46.0); HEMOGLOBIN 14.8 G/DL (11.9-15.5); MCH 32.6 PG (29.0-34.0); MCHC 33.9 G/DL (30.0-36.0); MCV 96.3 FL (83-99); PLATELET COUNT 177 K/uL (156-360); RBC DIS.WIDTH-CV 13.2 % (11.8-14.6); RBC DIS.WIDTH-SD 47.4 % (39-53); RED BLOOD COUNT 4.54 M/uL (3.80-5.20); WHITE BLOOD COUNT 7.2 K/uL (4.1-10.2)
[2018-02-08 16:57] LABS: ALBUMIN 4.2 g/dL (3.2-4.8); CHLORIDE 109 mEq/L (99-109); POTASSIUM 3.8 mEq/L (3.7-5.4); SODIUM 138 mEq/L (136-147)
[2018-02-08 16:57] LABS: AMPHETAMINE NEGATIVE (500 ng/mL); BARBITURATES NEGATIVE (200 ng/mL); BENZODIAZEPINES NEGATIVE (150 ng/mL); BUPRENORPHINE NEGATIVE (10 ng/mL); COCAINE NEGATIVE (150 ng/mL); METHADONE NEGATIVE (200 ng/mL); METHAMPHETAMINE NEGATIVE (500 ng/mL); OPIATES (MORPHINE) NEGATIVE (100 ng/mL); OXYCODONE NEGATIVE (100 ng/mL); PHENCYCLIDINE NEGATIVE (25 ng/mL); PROPOXYPHENE NEGATIVE (300 ng/mL); THC CANNABINOIDS PRESUMPTIVE POSITIVE (50 ng/mL); TRICYCLIC ANTIDEPRESSANTS NEGATIVE (300 ng/mL)
[2018-02-08 16:59] LABS: GLUCOSE 84 mg/dL (70-99); TOTAL PROTEIN 7.1 g/dL (6.4-8.3)
[2018-02-08 17:01] LABS: TOTAL BILIRUBIN 0.5 mg/dL (0.0-1.0)
[2018-02-08 17:02] LABS: SERUM ETHYL ALCOHOL < 10 mg/dL
[2018-02-08 17:03] LABS: ALKALINE PHOSPHATASE 59 IU/L (3-129); CREATININE 1.1 mg/dL (0.6-1.3); GFR ESTIMATE (CALCULATED) 57 mL/min/
[2018-02-08 17:04] LABS: AST (GOT) 11 IU/L (2-34); UREA NITROGEN (BUN) 21 mg/dL (9-23)
[2018-02-08 17:06] LABS: ALT (GPT) 10 IU/L (3-49)
[2018-02-08 17:12] LABS: QUANTITATIVE HCG 13.8 MIU/ML
[2018-02-08] MEDS ORDERED: NALTREXONE HCL50 MG PO (19:28)
[2018-02-08] MEDS ORDERED: PROZAC40 MG PO (19:30)
[2018-02-08] MEDS ORDERED: ENDOCET 5-3251 EACH PO (19:31)
[2018-02-08] MEDS ORDERED: AMBIEN5 MG PO (19:32)
[2018-02-08] MEDS ORDERED: FLEXERIL10 MG PO (19:32)
[2018-02-08] MEDS ORDERED: TYLENOL EXTRA500 MG PO (19:33)
[2018-02-08] MEDS ORDERED: NICODERM CQ1 EAC2 TD (19:33)
[2018-02-08] MEDS ORDERED: NICOTINE GUM2 MG BC (19:35)
[2018-02-08 20:35] VITALS: BP 136/82
[2018-02-09 07:57] VITALS: BP 105/76
[2018-02-09 16:47] VITALS: BP 92/53
[2018-02-10 07:34] VITALS: BP 118/78
[2018-02-10] MEDS ORDERED: HYDROXYZINE PAM50 MG PO (09:28)
[2018-02-10] MEDS ORDERED: PROZAC40 MG PO (09:28)
[2018-02-10] MEDS ORDERED: OLANZAPINE5 MG PO (09:28)
[2018-02-10] MEDS ORDERED: NALTREXONE HCL50 MG PO (09:28)
[2018-02-10] MEDS ORDERED: VENTOLIN HFA18 GM IH (09:28)
== END 2018-02-10 11:18 | disposition other institution (70) | DRG 881 ==
LOC: EME 15:23 → EDOF 18:15 → 1WEST 18:15 → ENRESERV 20:37 → 1WEST 20:37
PROVIDERS: Emergency Medicine
DX: F32.9 Major depressive disorder, single episode, unspecified (principal); F12.10 Cannabis abuse, uncomplicated; F11.10 Opioid abuse, uncomplicated; F14.10 Cocaine abuse, uncomplicated; F41.1 Generalized anxiety disorder; Z76.5 Malingerer [conscious simulation]; E78.5 Hyperlipidemia, unspecified; I10 Essential (primary) hypertension; J44.9 Chronic obstructive pulmonary disease, unspecified; K58.9 Irritable bowel syndrome, unspecified; E66.9 Obesity, unspecified; Z68.30 Body mass index [BMI] 30.0-30.9, adult; F17.200 Nicotine dependence, unspecified, uncomplicated; Z85.41 Personal history of malignant neoplasm of cervix uteri; Z90.710 Acquired absence of both cervix and uterus; Z81.8 Family history of other mental and behavioral disorders
CPT/HCPCS: 80053; 81003; 84702; 84999; 85027; 90837; 94640; 94799; 99281; 99285; G0480; Q0177

== ENCOUNTER 2018-03-17 22:14 | Emergency (ER) | payer OTHER ==
[~2018-03-17] VITALS: Ht 157.5 cm; Wt 81.0 kg
[~2018-03-17 22:14] MED LIST changes: +ENDOCET 5-3251 EACH PO; +HYDROXYZINE PAM50 MG PO; +NICOTINE GUM2 MG BC; +OLANZAPINE5 MG PO; +TYLENOL EXTRA500 MG PO
[2018-03-17 23:15] VITALS: BP 124/76
[2018-03-18] MEDS ORDERED: LIDODERM 5% P1 PATCH TD (03:31)
== END 2018-03-18 04:05 | disposition home or self-care (01) ==
LOC: EME 22:14
DX: M54.5 Low back pain (principal); G89.18 Other acute postprocedural pain; G89.29 Other chronic pain; J44.9 Chronic obstructive pulmonary disease, unspecified; F17.200 Nicotine dependence, unspecified, uncomplicated; Z88.6 Allergy status to analgesic agent; Z88.8 Allergy status to other drugs, medicaments and biological substances; Z88.1 Allergy status to other antibiotic agents
CPT/HCPCS: 99281; 99283